=== PATIENT | female | born 1955 | race African-American/Black ===

== ENCOUNTER 2018-03-18 12:54 | Inpatient (IN) | payer OTHER ==
--- NOTE | 2018-03-18 15:34 | PDOC ---
History of Present Illness - General Chief Complaint: Injury Stated Complaint: FALL, RT WRIST PAIN Time Seen by Provider: 03/18/18 14:24 History Source: Patient - History of Present Illness Timing/Duration: other (> 1 yr) Associated Symptoms: reports: weakness Past History - Past Medical History Allergies/Adverse Reactions: Allergies Allergy/AdvReac Type Severity Reaction Status Date / Time No Known Allergies Allergy Verified 03/18/18 21:44 Home Medications: Ambulatory Orders Amlodipine Besylate [Norvasc -] 5 mg PO DAILY #30 tablet 03/21/18 Folic Acid - 1 mg PO DAILY #30 tablet 03/21/18 Gabapentin [Neurontin -] 100 mg PO BID #60 capsule 03/21/18 Nicotine Patch [Nicoderm Patch -] 1 mg TD DAILY #42 patch 03/21/18 Nicotine Patch [Nicoderm Patch -] 1 patch TD DAILY #14 patch 03/21/18 Nicotine Patch [Nicoderm Patch -] 1 patch TD DAILY #14 patch 03/21/18 Thiamine HCl [Vitamin B1 -] 100 mg PO BID #60 tablet 03/21/18 COPD: No - Surgical History Cholecystectomy: Yes - Immunization History Immunization Up to Date: Yes - Suicide/Smoking/Psychosocial Hx Smoking History: Never smoked Have you smoked in the past 12 months: No Number of Cigarettes Smoked Daily: 5 Information on smoking cessation initiated: No Hx Alcohol Use: No Drug/Substance Use Hx: No Substance Use Type: None Review of Systems - Review of Systems Constitutional: Yes: Weakness, Unexplained wgt Loss. No: Chills, Fever Respiratory: No: Cough, Shortness of Breath Cardiac (ROS): No: Chest Pain, Palpitations ABD/GI: Yes: Constipated. No: Blood Streaked Bowels, Diarrhea, Nausea, Rectal Bleeding, Vomiting, Abdominal cramping : No: Burning, Dysuria, Flank Pain, Hematuria Musculoskeletal: No: Back Pain Neurological: Yes: Numbness, Tingling *Physical Exam - Vital Signs Last Vital Signs Temp Pulse Resp BP Pulse Ox 98.2 F 103 H 16 132/96 100 03/18/18 13:09 03/18/18 13:09 03/18/18 13:09 03/18/18 13:09 03/18/18 13:09 - Physical Exam General Appearance: Yes: Appropriately Dressed, Thin. No: Apparent Distress HEENT: positive: Normal Voice. negative: Scleral Icterus (R), Scleral Icterus ( L) Neck: positive: Supple. negative: Lymphadenopathy (R), Lymphadenopathy (L) Respiratory/Chest: positive: Lungs Clear, Normal Breath Sounds. negative: Respiratory Distress Cardiovascular: positive: Regular Rate, S1, S2 Gastrointestinal/Abdominal: positive: Soft. negative: Tender Musculoskeletal: negative: CVA Tenderness Extremity: positive: Normal Inspection Integumentary: positive: Dry, Warm Neurologic: positive: Fully Oriented, Alert, Normal Mood/Affect ED Treatment Course - LABORATORY CBC & Chemistry Diagram: 03/20/18 07:50 03/20/18 06:00 Medical Decision Making - Medical Decision Making 03/18/18 16:23 62-year-old female, s/p herlinda remotely, chronic headaches that usually improves w/ tylenol, ~40 pack yr hx, social drinker (wine w/ dinner), here for evaluation for the 1st time for anorexia that has been present > 1 year. Pt reports that October of last year she ended up losing her job and around that same time developed loss of appetite. States whenever she eats, food has a "funny taste" but denies n/v. States she has lost tremendous weight but not sure how many pounds. Patient does report she was about a size 14 then and might now be a size 3-4. Does have some constipation, which she attributes to not eating but no change in caliber of stools or blood per rectum, melena or abdominal pain. Denies dysuria, hematuria, cough, hemoptysis, chest pain, shortness of breath, breast pain or mass. Does report generalized weakness w/ tingling in hands and feet intermittently x several weeks and that has not been able to ambulate without assistance for the past 3 weeks. No neck/back pain. Patient does admit that she is a poor follow up and has never had a mammogram or a colonoscopy. Has not been evaluated for symptoms prior to this but has her 1st appt w/ Dr Nancy Bare tomorrow. Decided to come in today however, because while standing in her bathroom yesterday, felt a "funny feeling" come over her and next thing she knew she was on the floor. Pt however denies true LOC and no CP or dizziness prior to fall. Pt states she currently has no stressors and is able to mostly enjoy her grandson. Does say she is depressed "sometimes". No HI. Denies anxiety See exam Chronic anorexia w/ progressive weight loss (BMI ~20) in pt w/ significant tob hx Concern is for possible malignancy Thin, cachetic appearing female w/ dry MM and mild tachycardia in ER -IVF -labs -denis-scan -anticipate admission *DC/Admit/Observation/Transfer Diagnosis at time of Disposition: Weight loss, Lung bullae, Neuropathy - Discharge Dispostion Disposition: VNS/HOME HEALTH CARE Condition at time of disposition: Stable - Prescriptions - Referrals - Patient Instructions - Post Discharge Activity
[2018-03-18 16:26] LABS: BASO % 0.3 % (0-2.0); EOS % 0.1 % (0-4.5); HEMATOCRIT 29.9 % (32.4-45.2); HEMOGLOBIN 10.1 GM/dL (10.7-15.3); LYMPH % 24.4 % (8-40); MCH 32.3 pg (25.7-33.7); MCHC 33.7 g/dl (32.0-36.0); MEAN CELL VOLUME 95.8 fl (80-96); MEAN PLT VOLUME 7.6 fl (7.5-11.1); MONO % 6.8 % (3.8-10.2); NEUT % 68.4 % (42.8-82.8); PLATELET COUNT 343 K/MM3 (134-434); RBC 3.12 M/mm3 (3.60-5.2); RDW 14.9 % (11.6-15.6); WHITE BLOOD COUNT 9.6 K/mm3 (4.0-10.0)
[2018-03-18] MEDS ORDERED: SODIUM CHLORIDE 1,000 ML IV STA (16:40)
[2018-03-18 16:44] LABS: INR 0.86 (0.83-1.09); PROTHROMBIN TIME (PATIENT) 10.1 SEC (9.7-13.0)
[2018-03-18 17:28] LABS: ALBUMIN 3.2 g/dl (3.4-5.0); ALK PHOS 101 U/L (45-117); ANION GAP 13 MMOL/L (8-16); BILIRUBIN,TOTAL 0.6 mg/dL (0.2-1); BLOOD UREA NITROGEN 11 mg/dL (7-18); CALCIUM 9.5 mg/dL (8.5-10.1); CHLORIDE 97 mmol/L (98-107); CO2 24 mmol/L (21-32); CREATININE 0.7 mg/dL (0.55-1.3); GLUCOSE,RANDOM 65 mg/dL (74-106); MAGNESIUM 1.9 mg/dL (1.8-2.4); POTASSIUM 4.9 mmol/L (3.5-5.1); SGOT/AST 35 U/L (15-37); SGPT/ALT 29 U/L (13-61); SODIUM 134 mmol/L (136-145); TOT PROT 7.1 g/dl (6.4-8.2)
[2018-03-18] MEDS ORDERED: DEXTROSE 50%-WATER - 25 GM/50 ML VIAL IVPUSH ONE (17:28)
[2018-03-18] MEDS ORDERED: DEXTROSE 50%-WATER 25 GM/50 ML DISP.SYRIN ONE (17:30)
--- NOTE | 2018-03-18 19:49 | PDOC ---
*Physical Exam - Vital Signs Last Vital Signs Temp Pulse Resp BP Pulse Ox 98.2 F 103 H 16 132/96 100 03/18/18 13:09 03/18/18 13:09 03/18/18 13:09 03/18/18 13:09 03/18/18 13:09 - Physical Exam General Appearance: Yes: Appropriately Dressed, Thin Respiratory/Chest: positive: Lungs Clear, Normal Breath Sounds Cardiovascular: positive: Regular Rhythm, Regular Rate Gastrointestinal/Abdominal: positive: Normal Bowel Sounds, Soft. negative: Tender Extremity: positive: Normal Capillary Refill, Normal Inspection, Normal Range of Motion Integumentary: positive: Normal Color, Dry, Warm Neurologic: positive: Fully Oriented, Alert, Normal Mood/Affect ED Treatment Course - LABORATORY CBC & Chemistry Diagram: 03/20/18 07:50 03/20/18 06:00 - ADDITIONAL ORDERS Additional order review: Laboratory Results 03/18/18 03/18/18 16:00 16:00 PT with INR 10.10 INR 0.86 Sodium 134 L Potassium 4.9 Chloride 97 L Carbon Dioxide 24 Anion Gap 13 BUN 11 Creatinine 0.7 Creat Clearance w eGFR > 60 Random Glucose 65 L Calcium 9.5 Magnesium 1.9 Total Bilirubin 0.6 AST 35 ALT 29 Alkaline Phosphatase 101 Total Protein 7.1 Albumin 3.2 L Vitamin B12 573 03/18/18 16:00 RBC 3.12 L MCV 95.8 MCHC 33.7 RDW 14.9 MPV 7.6 Neutrophils % 68.4 Lymphocytes % 24.4 Monocytes % 6.8 Eosinophils % 0.1 Basophils % 0.3 - Medications Given in the ED: ED Medications Discontinued Medications Generic Name Dose Route Start Last Admin Trade Name Jesika PRN Reason Stop Dose Admin Dextrose 25 gm 03/18/18 17:28 03/18/18 17:39 D50w (Vial) - IVPUSH 03/18/18 17:29 25 gm NOW ONE Administration Sodium Chloride 1,000 mls @ 1,000 mls/hr 03/18/18 16:40 03/18/18 17:28 Normal Saline - IV 03/18/18 17:39 1,000 mls/hr ASDIR STA Administration Medical Decision Making - Medical Decision Making 03/18/18 19:49 patient is reporting weakness. weight > 30 lbs in 1 year. patient is a smoker. denies NVD, abdominal pain CT reviewed. will obs for prompt oncology consult considering strong suggestion for malignancy. 03/18/18 19:53 patient signed out to Dr. bran/ [place] *DC/Admit/Observation/Transfer Diagnosis at time of Disposition: Weight loss, Lung bullae, Neuropathy - Discharge Dispostion Condition at time of disposition: Stable Decision to Admit order: Yes - Prescriptions - Referrals - Patient Instructions - Post Discharge Activity
[2018-03-18 21:24] LABS: PHOSPHOROUS 3.5 mg/dL (2.5-4.9)
--- NOTE | 2018-03-18 22:07 | HP ---
CHIEF COMPLAINT: weakness, parasthesias PCP: Nancy Hull HISTORY OF PRESENT ILLNESS: Patient is a 62 year old female with history of hypertension, presents with complaint of parasthesias, and weakness ongoing for past three weeks. She denies inciting event or trauma. States that she feels parasthesias within her b /l hands and lower extremities and feet distal to the knees b/l. Endorses that for past year her appetite has decreased, and most food tastes like Tin metal. She is able to tolerate fruits and vegetables, however for past 6 months has been drinking 3 ensure a day as main source of nourishment. She denies abdominal pain, nausea, vomiting, diarrhea, or any prior workup. She endorses two syncopal episodes last night. First occurred while standing in bathroom, feeling lightheaded, and weakness in lower extremities. Denies prodromal chest pain, palpitations. No urinary bladder or bowel incontinence. No trauma to head or any part of body. Denies loss of consciousness. Second episode occurred approx. 1 hour later after walking upstairs after smoking a cigarette. Patient endorses last seeing a physician at [facility] for the symptoms of weakness and parasthesias, however prior to that visit denies any recent physician visit. Denies prior colonoscopy, or mammography. ER course was notable for: (1) CT chest: 2.3cm bullae at right lower lobe with internal septations (2) CT abdomen pelvis: possible collitis, with mild concentric wall thickening. Hepatic steatosis with 1.4cm left hepatic lobe focus (3) Orthostatic hypotension: supine 172/97 (88), standing 118/85 (119) Recent Travel: denies PAST MEDICAL HISTORY: hypertension (not on treatment) PAST SURGICAL HISTORY: cholecystectomy at 20 y/o Social History: Smoking: smokes 1/2 pack per day since 16 years old Alcohol: admits two glasses of wine with dinner Drugs: denies Family History: Father: in his 50s due to lung cancer Mother: at 65 y/o due to brain cancer Allergies: Denies food and medication allergies No Known Allergies Allergy (Verified 03/18/18 21:44) HOME MEDICATIONS: Home Medications Medication Instructions Recorded NK [No Known Home Medication] 03/18/18 REVIEW OF SYSTEMS CONSTITUTIONAL: Admits: generalized weakness, loss of appetite, weight loss. Absent: fever, chills, diaphoresis, malaise, HEENT: Absent: rhinorrhea, nasal congestion, throat pain, throat swelling, difficulty swallowing, mouth swelling, ear pain, eye pain, visual changes CARDIOVASCULAR: Admits: lightheadedness. Absent: chest pain, syncope, palpitations, irregular heart rate, peripheral edema RESPIRATORY: Absent: cough, shortness of breath, dyspnea with exertion, orthopnea, wheezing, stridor, hemoptysis GASTROINTESTINAL: Admits: constipation. Absent: abdominal pain, abdominal distension, nausea, vomiting, diarrhea, melena, hematochezia GENITOURINARY: Absent: dysuria, frequency, urgency, hesitancy, hematuria, flank pain, genital pain MUSCULOSKELETAL: Absent: myalgia, arthralgia, joint swelling, back pain, neck pain SKIN: Absent: rash, itching, pallor HEMATOLOGIC/IMMUNOLOGIC: Absent: easy bleeding, easy bruising, lymphadenopathy, frequent infections ENDOCRINE: Admits: weight loss. Absent: unexplained weight gain, heat intolerance, cold intolerance NEUROLOGIC: Admits: syncope, pasasthesias, focal weakness b/l lower extremities. Absent: headache, dizziness, unsteady gait, seizure, mental status changes, bladder or bowel incontinence PSYCHIATRIC: Admits: occasional depression. Absent: anxiety, suicidal or homicidal ideation, hallucinations. PHYSICAL EXAMINATION Vital Signs - 24 hr 03/18/18 03/18/18 13:09 19:15 Temperature 98.2 F Pulse Rate 103 H Pulse Rate [ 97 H Apical] Respiratory 16 18 Rate Blood Pressure 132/96 Blood Pressure 130/87 [Left Arm] O2 Sat by Pulse 100 98 Oximetry (%) GENERAL: Pleasant -[place] female, appears stated age. Awake, alert, and fully oriented, in no acute distress. HEAD: Normal with no signs of trauma. No facial drooping noted. EYES: Pupils equal, round and reactive to light, extraocular movements intact without nystagmus, sclera anicteric, conjunctiva clear. No lid lag. EARS, NOSE, THROAT: Ears normal, nares patent, oropharynx clear without erythema , exudates. Moist mucous membranes. NECK: Normal range of motion, supple without lymphadenopathy, JVD, or masses. LUNGS: Breath sounds equal, clear to auscultation bilaterally. No wheezes, and no crackles. No accessory muscle use. HEART: Regular rate and rhythm, normal S1 and S2 without murmur, rub or gallop. ABDOMEN: Soft, nontender, not distended, normoactive bowel sounds, no guarding, no rebound, no masses. No hepatomegaly or splenomegaly. MUSCULOSKELETAL: Normal range of motion at all joints. No bony deformities or tenderness. No CVA tenderness. UPPER EXTREMITIES: 2+ radial pulses b/l, warm, well-perfused. Strength 5/5 b/l upper extremity flexion, extension, abduction, adduction. LOWER EXTREMITIES: 2+ dorsalis pedis pulses b/l. warm, well-perfused. No calf tenderness. No peripheral edema b/l. Strength 3/5 seated hip flexion b/l, 4/5 dorsiflexion, plantarflexion b/l. 5/5 knee flexion, extension b/l. NEUROLOGICAL: Cranial nerves II-XII intact. Biceps reflex 2+ b/l. Patellar reflex 2+ b/l. Normal speech. Gait is ataxic, requiring assistance. PSYCHIATRIC: Cooperative. Good eye contact. Appropriate mood and affect upon my encounter today. SKIN: Warm, dry, normal turgor, no rashes or lesions noted. Horizontal scar at right upper quadrant abdomen from prior cholecystectomy. Laboratory Results - last 24 hr 03/18/18 03/18/18 03/18/18 16:00 16:00 16:00 WBC 9.6 RBC 3.12 L Hgb 10.1 L Hct 29.9 L MCV 95.8 MCH 32.3 MCHC 33.7 RDW 14.9 Plt Count 343 MPV 7.6 Absolute Neuts (auto) 6.6 Neutrophils % 68.4 Lymphocytes % 24.4 Monocytes % 6.8 Eosinophils % 0.1 Basophils % 0.3 Nucleated RBC % 0 PT with INR 10.10 INR 0.86 Sodium 134 L Potassium 4.9 Chloride 97 L Carbon Dioxide 24 Anion Gap 13 BUN 11 Creatinine 0.7 Creat Clearance w eGFR > 60 POC Glucometer Random Glucose 65 L Calcium 9.5 Phosphorus 3.5 Magnesium 1.9 Total Bilirubin 0.6 AST 35 ALT 29 Alkaline Phosphatase 101 Total Protein 7.1 Albumin 3.2 L Vitamin B12 573 03/18/18 20:59 WBC RBC Hgb Hct MCV MCH MCHC RDW Plt Count MPV Absolute Neuts (auto) Neutrophils % Lymphocytes % Monocytes % Eosinophils % Basophils % Nucleated RBC % PT with INR INR Sodium Potassium Chloride Carbon Dioxide Anion Gap BUN Creatinine Creat Clearance w eGFR POC Glucometer [id number] Random Glucose Calcium Phosphorus Magnesium Total Bilirubin AST ALT Alkaline Phosphatase Total Protein Albumin Vitamin B12 ASSESSMENT/PLAN: Patient is a 62 year old female with history of hypertension, presents with complaint of parasthesias, and weakness ongoing for past three weeks. Parasthesias, lower extremity weakness -Unclear etiology. Considering possible paraneoplastic syndrome secondary to lung mass noted on CT -F/U TSH, A1c, ESR, CRP, TIERRA, RF -Falls appear to be secondary to her lower extremity weakness -Gabapentin 100mg PO BID -F/U neurology consult (Dr. Angel) -Physical therapy evaluation Lung Mass -CT chest noted 2.3cm right lower lobe bulla with thickened internal septations. Concern for malignancy given patient's extensive smoking history, and family history of lung cancer. -F/U Pulmonology consult (Dr. Thayer) -Patient will require f/U CT chest within two months per radiologist recommendations Possible colitis -Incidentally noted on CT with mild concentric wall thickening along ascending and transverse colon. No pericolonic edema, or fluid accumulation. No pneumoperitoneum, abscess, free air. -Patient notes her bowel movements have remained constant (1-2 per week) without change in stool caliber, melena, hematochezia. Benign abdominal exam. -Will monitor without antibiotics at this time. -Consider GI follow up as outpatient. Patient will at least need colonoscopy. Common iliac arotic stenosis -CT abdomen pelvis noted stenosis of left common iliac artery with calcification. -F/U Duplex arterial studies of lower extremities. Hepatic steatosis, enhancing focus -Incidental finding 1.4cm within medial segment left hepatic lobe, in addition to diffuse hepatic steatosis. -Recommended contrast MRI as outpatient per radiology. -Consider outpatient GI follow up Normocytic anemia -Uncertain if patient at baseline. -F/U reticulocyte count -F/U serum iron, transferrin, TIBC Leiomyoma -Incidentally noted on CT, 4.5cm -Consider outpatient follow up with [facility] -No IV fluids. Encourage judicious oral hydration -Within normal limits. F/U CMP -Regular diet Prophylaxis -Lovenox 40mg subq daily Disposition -Admit to medical surgical floor. Fall risk precautions Visit type - Emergency Visit Emergency Visit: Yes ED Registration Date: 03/18/18 Care time: The patient presented to the Emergency Department on the above date and was hospitalized for further evaluation of their emergent condition. - New Patient This patient is new to me today: Yes Date on this admission: 03/19/18 - Critical Care Critical Care patient: No
--- NOTE | 2018-03-18 22:52 | PN ---
Teaching Attending Note Name of Resident: Narda Santo ATTENDING PHYSICIAN STATEMENT I saw and evaluated the patient. I reviewed the resident's note and discussed the case with the resident. I agree with the resident's findings and plan as documented. SUBJECTIVE: patient is a 62-year-old -[place] female with past medical history of cholecystectomy at age 20 and has not seen a doctor since. She presents to the emergency room for 3 weeks of worsening peripheral neuropathy impacting all 4 limbs stocking glove distribution on both her hands and feet. It is associated with weakness that is not made better or worse with activity that has a predilection for the distal extremities specifically impacting the lower limb. She was seen shortly before coming to the ER by [facility] but tells me that they didn't give her a diagnosis. The the impacts her ability to ambulate and she did have 2 mechanical falls within the past with less, there were no syncopal symptoms with this. She did not lose consciousness. She has been having formed not hard bowel movement since her cholecystectomy has had no change in her bowel movements in years. She is having no abdominal pain. Denies any rashes. She does have some joint pain in her knees. Denies any fecal or urinary incontinence, no saddle anesthesia. 10 sys ROS done and negative aside from HPI Social hx significant for daily half pack-a-day smor, denies alcohol abuse but does drink wine daily with dinner, denies any drug abuse FH significant for parents with breast cancer, brain cancer. PMH and PSH reviewed and are as per chart OBJECTIVE: VS, labs, imaging reviewed NAD, AAO, resting comfortably in bed. RRR s1/2 no mgr Lungs CTAB with sym expansion NT ND +BS no leticia organomegaly CN2-12 wnl; no FND; 4/5 motor strength b/l LE with 5/5 UE with sensorium in tact to fine and sharp touch. Normal muscle tone without any cogwheeling. Gait examined by resident but she was feeling weak after so not rechecked to mitigate a fall risk. Reflexes normal. Speech and cognition are normal. NC AT EOMI PERRLA Normal mood, appropriate behavior, euthymic affect CT shows a 2.3 cm RLL superior segment bulla with some thick internal septations ; 2 month followup recommended. Questionable Acute Collitis with mild concentric wall thickening without pericolonic edema 1.4cm mildly enhanced segment of the L-hepatic lobe 4.5cm leiomyoma Moderate stenosis of the L common iliac A Labs reveal a normal white count and a normocytic anemia with Hb 10. Glucose slightly low at 65. ASSESSMENT AND PLAN: Pt is 62-year old presenting with 3 weeks of progressive peripheral neuropathy and weakness; she does not follow with a physician She had some concerning findings in her lungs on CT with the bulla with thick septations. She will be admitted to medicine with pulmonary and neurological consultation. 1) Peripheral Neuropathy with Weakness -Broad ddx; we will consider the common offenders and check B12, TSH, and A1c. We will also consider more esoteric causes of this including rheumatologic and potential neuro/endocrine. No recent tick exposure, rashes, etc. No travel overseas. No sick contacts. No ascending component to her weakness and still 4 /5 and still ambulatory. No respiratory compromise. Not improving/worsening with activity. As upper and lower not suspecting a focal spinal cord lesion causing these sx. She does drink almost daily but only 1-2 glasses of wine with food and denies alcohol abuse; recommend stopping all alcohol to ensure there is no EtOH component to her neuropathy. -Checking ESR/CRP, TIERRA screen, RF. As she has issues with not seeing an MD in a long time, etc. will have neuro see her here to get her situated in clinic for continued followup; I have instructed the residents to phone them in the morning. As always, appreciate specialist input in the ongoing care of Mrs. Mooney. We will defer further testing such as neuroimaging to specialty service. -Trialing gabapentin at low dose and monitor for improvement; monitor for side effects -Consult PT 2) Bowel Wall Thickening (found incidentally on CT) -Denies abdominal pain, diarrhea, changes in BM, current nausea or vomitting. Did vomit water a few days ago. No WBC count, no fever. Given the lack of symptoms, completely benign examination, and lab findings this appears to be isolated mild concentric colonic wall thickening that could represent colitis but lacks the rest of the clinical picture. Therefore we will monitor for diarrhea and trend WBC count and fevers. We will check lactoferrin at least to rule out any inflammatory component of the diarrhea. Never had a colonoscopy or EGD. Never saw GI. No abx at this time. 3) RLL superior segment bulla -2.3cm RLL superior segment bulla with some thick internal septations found on CT scan; recommended 2 month followup of imaging to document stability and to exclude developing pathology. -Will ensure she is associated with PCP and pulmonary medicine for followup; once again given her circumstances would behove her to be seen here so she isn' t lost to followup. Dr. Thayer will be phoned in the AM. 3) Hepatic lobe focal lesion -Could be variant of normal anatomy; 1.4cm finding in the medial segment of the L-hepatic lobe is focal and nonspecific. Radiology recommended contrast- enhanced MRI done nonemergently. At the very least she should have this arranged for her as an outpatient prior to DC with potential followup with GI. 4) L-common iliac A stenosis -Incidental finding; distribution doesn't explain any of her sx. -Obtaining duplex studies of the lower extremities. Will followup. She is neurovascularly intact in her lower extremities bilaterally. 5) Hepatic Steatosis -Found incidentally on CT scan; deputy chief counsel regarding lifestyle modification and close followup with PCP recommended 6) Leiomyoma -Incidental finding; encourage outpatient referral to OBGYN. 7) Normocytic Anemia -Check iron studies, etc. XF threshold >7 8) Tobacco Abuse -Counseled regarding smoking cessasion; precontemplative. Offer NRT while inpatient. #) Overall Health Maintenance -As she has never been to an MD as an adult, we will check an A1c, check lipids ; already checking TSH for above reasons. She will need mamogram and colonoscopy as an outpatient. Already had the CT scan of her abdomen/pelvis which didn't show a AAA. CT chest obviously has been done so this isn't needed for screening. She will need pneumococcal vaccine, flu shot, and updated Tdap and at least offered shingles vaccine. FENA -No IVF needed -Monitor and replete PRN -Regular Diet -As tolerated
[2018-03-18] MEDS ORDERED: amLODIPine BESYLATE 5 MG TABLET (FP) PO ONE (23:32)
[2018-03-18] MEDS ORDERED: GABAPENTIN 100 MG CAPSULE (FP) ONE (23:36)
[2018-03-18] MEDS: GABAPENTIN 100 MG CAPSULE (FP) PO SCH (23:42)
[2018-03-19 02:00] VITALS: BMI 19.9
[2018-03-19] MEDS ORDERED: PNEUMOC 13-VAL CONJ-DIP CRM/PF 0.5 ML DISP.SYRIN IM ONE (02:00)
[2018-03-19 07:25] LABS: HEMATOCRIT 25.5 % (32.4-45.2); HEMOGLOBIN 8.6 GM/dL (10.7-15.3); MCH 32.4 pg (25.7-33.7); MCHC 33.6 g/dl (32.0-36.0); MEAN CELL VOLUME 96.4 fl (80-96); PLATELET COUNT 273 K/MM3 (134-434); RBC 2.65 M/mm3 (3.60-5.2); RDW 14.7 % (11.6-15.6); WHITE BLOOD COUNT 9.9 K/mm3 (4.0-10.0)
[2018-03-19 08:40] LABS: ALBUMIN 2.9 g/dl (3.4-5.0); ALK PHOS 88 U/L (45-117); ANION GAP 14 MMOL/L (8-16); BILIRUBIN,TOTAL 0.5 mg/dL (0.2-1); BLOOD UREA NITROGEN 9 mg/dL (7-18); CHLORIDE 101 mmol/L (98-107); CO2 23 mmol/L (21-32); CREATININE 0.7 mg/dL (0.55-1.3); GLUCOSE,RANDOM 76 mg/dL (74-106); MAGNESIUM 1.6 mg/dL (1.8-2.4); PHOSPHOROUS 2.9 mg/dL (2.5-4.9); POTASSIUM 3.3 mmol/L (3.5-5.1); SGOT/AST 23 U/L (15-37); SGPT/ALT 21 U/L (13-61); SODIUM 138 mmol/L (136-145)
[2018-03-19] MEDS ORDERED: POTASSIUM CHLORIDE TABS 20 MEQ TABLET.ER (FP) PO ONE (09:07)
[2018-03-19] MEDS ORDERED: FLU VACCINE QUAD 60 MCG/0.5 ML (MDV 18-19) IM ONE (10:00)
[2018-03-19] MEDS ORDERED: ENOXAPARIN NA (PORCINE) 40 MG/0.4 ML DISP.SYRIN SQ SCH (10:00)
[2018-03-19] MEDS ORDERED: PNEUMOCOCCAL 23 VACCINE 0.5 ML VIAL IM ONE (10:00)
--- NOTE | 2018-03-19 10:06 | CON.NEURO ---
Consult Consult Specialty:: Stanley Referred by:: PCP Reason for Consultation:: weakness - History of Present Illness History of Present Illness: 62 years old woman with PMH HTN Smoker Anemia according to the patient she has been having these leg symptoms for quite a while about 7-10 days patient did not seek medical attention patient feels her legs are giving out. Patient denies any recent fever or diarrhea. No abdominal pain. Patient with mild back pain. Patient never had these symptoms before. Patient denies any recent travel. Patient admits to weight loss patient is a smoker. - History Source History Provided By: Patient Limitations to Obtaining History: No Limitations - Alcohol/Substance Use Hx Alcohol Use: Yes (2 glasses of wine daily) - Smoking History Smoking history: Current every day smoker Have you smoked in the past 12 months: No Aproximately how many cigarettes per day: 5 Home Medications - Allergies Allergies/Adverse Reactions: Allergies Allergy/AdvReac Type Severity Reaction Status Date / Time No Known Allergies Allergy Verified 03/18/18 21:44 - Home Medications Home Medications: Ambulatory Orders Acetaminophen [Tylenol] 650 mg PO PRN PRN 03/19/18 Physical Exam-Neuro Vital Signs: Vital Signs Temperature 98.5 F 03/19/18 05:41 Pulse Rate 90 03/19/18 05:41 Respiratory Rate 18 03/19/18 05:41 Blood Pressure 132/91 03/19/18 05:41 O2 Sat by Pulse Oximetry (%) 100 03/19/18 01:47 Labs: CBC, BMP 03/19/18 06:00 03/19/18 06:00 INR, PTT INR 0.86 (0.83-1.09) 03/18/18 16:00 - Neuro Exam Level Of Consciousness: Yes: Oriented to Person, Oriented to Place, Oriented to Time Eyes: Yes: PERRLA Dominant Hand: Right Cranial Nerves II-XII Intact: Yes Gag: Present DTR's: 1+ Left Bicep, 1+ Right Bicep, 1+ Left Brachioradialis, 1+ Right Brachioradialis Response to pain prick: Abnormal Response to temperature: Abnormal Response to vibration: Abnormal Motor Strength: 3/5: Left Arm, Right Arm, Left Leg, Right Leg Gait: Deferred Problem List - Problems (1) Neuropathy Assessment/Plan: tthe nature of the patient's symptoms with ascending paresthesia make me worried about demyelinating disease Patient has reflexes which speaks against Guillain-Hartman syndromes. Questionable nature neuropathy versus spinal stenosis to be ruled out 1. Neuro checks every 2 hours. 2. Urgent nerve conduction testing with myography of the lower extremities. 3. Consider spinal tap to check for protein. 4. Fall precautions. 5. CAT scan of the lumbosacral spine with no contrast. 6. Blood work including tumor markers for questionable paraneoplastic syndrome. 7. Follow-up the results of the CAT scan of the chest with the all round butcher. Thank you very much for referring this patient for neurological consultation. Code(s): G62.9 - POLYNEUROPATHY, UNSPECIFIED
[2018-03-19] MEDS: amLODIPine BESYLATE 5 MG TABLET (FP) PO SCH (10:15)
[2018-03-19] MEDS: GABAPENTIN 100 MG CAPSULE (FP) PO SCH ×2 (10:16→21:05)
--- NOTE | 2018-03-19 11:35 | EKG ---
Test Reason : Blood Pressure : / mmHG Vent. Rate : 087 BPM Atrial Rate : 087 BPM P-R Int : 106 ms QRS Dur : 096 ms QT Int : 396 ms P-R-T Axes : 064 068 051 degrees QTc Int : 476 ms SINUS RHYTHM WITH MARKED SINUS ARRHYTHMIA WITH SHORT WV POSSIBLE LEFT ATRIAL ENLARGEMENT INCOMPLETE RIGHT BUNDLE BRANCH BLOCK BORDERLINE ECG NO PREVIOUS ECGS AVAILABLE Confirmed by SAMRA WADE, VIOLA ([id number]) on 03/19/2018 11:35:10 AM Referred By: Confirmed By:VIOLA CABRALES MD
--- NOTE | 2018-03-19 15:21 | PN ---
Progress Note (short form) - Note Progress Note: PULMONARY CONSULTATION DICTATED 03/19/18 IMP RLL BULLA WITH SEPTATIONS NEUROPATHY ? PARANEOPLASTIC ANEMIA WT LOSS ? UNDERLYING MALIGNANCY TOBACCO ABUSE PLAN F/U CHEST CT 3 MONTHS CONSIDER GI W/U NEURO EVALUATION SMOKING CESSATION COUNSELED CONSIDER PET SCAN OUTPATIENT DR GARZA Problem List - Problems (1) Weight loss Code(s): R63.4 - ABNORMAL WEIGHT LOSS (2) Tobacco abuse Code(s): Z72.0 - TOBACCO USE (3) Tobacco abuse counseling Code(s): Z71.6 - TOBACCO ABUSE COUNSELING (4) Neuropathy Code(s): G62.9 - POLYNEUROPATHY, UNSPECIFIED (5) Lung bullae Code(s): J43.9 - EMPHYSEMA, UNSPECIFIED (6) Anemia Code(s): D64.9 - ANEMIA, UNSPECIFIED
[2018-03-19] MEDS ORDERED: MAGNESIUM OXIDE 400 MG TABLET (FP) PO ONE (15:46)
--- NOTE | 2018-03-19 16:24 | PN ---
Teaching Attending Note Name of Resident: Samuel Guo ATTENDING PHYSICIAN STATEMENT I saw and evaluated the patient. I reviewed the resident's note and discussed the case with the resident. I agree with the resident's findings and plan as documented. SUBJECTIVE: No fever or chils. no night sweats. No CP, abd pain , or dysuria . No melena , rectal bleed, cough , hemoptysis OBJECTIVE: NAD Cv : RRR Lungs: CTAB abd: soft , Nt, Nd , NL BS Ext : no edema neuro : EOMI, round equal pupils ,reactive tolight, no facial droop. nl facial sensation . strength 5/5 in upper and lower extremities proximally and distally. sesnation to light touch NL. reflexes 2+ biceps and 1+ knee jerk B/ l. decreased proprioception ASSESSMENT AND PLAN: 62 y/o Lady with h/o CCY and no medical care for many years who presented with parasthesia and weight loss. 1- Parasthesia. peripheral neuropathy. no clear etiology. nutritional def vs paraneoplastic syndromes vs MM given anemia B12 , TSH Nl. - follow tumor markers - LP by Neuro - CT of spine - order SPEP, UPEP - will consent for HIV - PT eval. - Pet scan as out pt - follow zinc and mercury 2- weight loss. cherry to r/o malignancy - PET scan as out pt 3- L lung bullus : f/u as out pt 4- uterine fibroid : out pt follo wup 5- Normocytic anemia : follow iron studies check SPEP and UPEP 6- Liver lesions: follow up with MRI as out pt 7- accidental finding of thick colon, no signs of colitis . hold off Abx 8- hypoglycemia resolved hold DVT PX for LP
--- NOTE | 2018-03-19 20:03 | PN ---
Physical Exam: SUBJECTIVE: Patient seen and examined this morning. Says she has never passed out in the past. Says she has had numbness and lower extremity swelling for the past month that came on all of sudden. Denies having any appetite over the past few months. Estimates losing 30-40lbs over the past few months. OBJECTIVE: Vital Signs Period Temp Pulse Resp BP Sys/Finley Pulse Ox Last 24 Hr 97.7 F-98.6 F 83-103 18-20 129-166/74-91 98-100 GENERAL: A&Ox3, NAD HEAD: NCAT EYES: PERRL, EOMI ENT: Moist mucous membranes NECK: No JVD LUNGS: CTAB, no wheezes HEART: Regular rate and rhythm, S1, S2 without murmur ABDOMEN: Soft, nontender, nondistended, normoactive bowel sounds, no guarding EXTREMITIES: 2+ pulses, no edema. 4/5 Muscle strength to handgrip, elbow flexion /extension, dorsiflexion, platarflexion. 3/5 Muscle strength to Hip flexion. NEUROLOGICAL: Cranial nerves II through XII grossly intact. Normal speech, gait not observed. PSYCH: Normal mood, normal affect. SKIN: Warm, dry Laboratory Results - last 24 hr 03/18/18 03/18/18 03/18/18 16:00 20:59 23:35 WBC RBC Hgb Hct MCV MCH MCHC RDW Plt Count MPV ESR Retic Count Sodium 134 L Potassium 4.9 Chloride 97 L Carbon Dioxide 24 Anion Gap 13 BUN 11 Creatinine 0.7 Creat Clearance w eGFR > 60 POC Glucometer [phone] Random Glucose 65 L Calcium 9.5 Phosphorus 3.5 Magnesium 1.9 Total Bilirubin 0.6 AST 35 ALT 29 Alkaline Phosphatase 101 C-Reactive Protein < 0.3 Total Protein 7.1 Albumin 3.2 L Vitamin B12 573 TSH 1.74 Urine Protein Stool Occult Blood 03/19/18 03/19/18 03/19/18 00:05 06:00 06:00 WBC 9.9 RBC 2.65 L Hgb 8.6 L Hct 25.5 L MCV 96.4 H MCH 32.4 MCHC 33.6 RDW 14.7 Plt Count 273 D MPV 8.0 ESR 28 Retic Count Sodium 138 Potassium 3.3 L Chloride 101 Carbon Dioxide 23 Anion Gap 14 BUN 9 Creatinine 0.7 Creat Clearance w eGFR > 60 POC Glucometer Random Glucose 76 Calcium 9.0 Phosphorus 2.9 Magnesium 1.6 L Total Bilirubin 0.5 AST 23 ALT 21 Alkaline Phosphatase 88 C-Reactive Protein Total Protein 6.0 L Albumin 2.9 L Vitamin B12 TSH Urine Protein Stool Occult Blood 03/19/18 03/19/18 03/19/18 06:00 13:28 15:40 WBC RBC Hgb Hct MCV MCH MCHC RDW Plt Count MPV ESR Retic Count 1.05 Sodium Potassium Chloride Carbon Dioxide Anion Gap BUN Creatinine Creat Clearance w eGFR POC Glucometer Random Glucose Calcium Phosphorus Magnesium Total Bilirubin AST ALT Alkaline Phosphatase C-Reactive Protein Total Protein Albumin Vitamin B12 TSH Urine Protein 44 H Stool Occult Blood Negative Active Medications Amlodipine Besylate (Norvasc -) 5 mg PO DAILY [facility] Last Admin: 03/19/18 10:15 Dose: 5 mg Gabapentin (Neurontin -) 100 mg PO BID [facility] Last Admin: 03/19/18 10:16 Dose: 100 mg IMAGING: -EKG: SINUS RHYTHM WITH MARKED SINUS ARRHYTHMIA WITH SHORT VA, POSSIBLE LEFT ATRIAL ENLARGEMENT, INCOMPLETE RIGHT BUNDLE BRANCH BLOCK, VR 87, QTc 476 -Right Hand/Wrist XRay: AP, lateral and oblique views of the right hand and wrist reveal no sign of a gross fracture, subluxation or bone destruction. Blastic or lytic changes are not seen. There is no sign of swelling, foreign body or soft tissue air. If symptoms persist, further imaging and orthopedic consultation may be of help. -CT A/P: Possible acute colitis as noted above. A 1.4 cm mildly enhancing left hepatic lobe focus is seen probably on the basis of normal variation and less likely representing a focal nonspecific lesion. Correlate with nonemergent contrast-enhanced multiphase MRI. Probable diffuse hepatic steatosis. 4.5 cm partially calcified uterine leiomyoma. A focal atherosclerotic stenosis is seen within the left common iliac artery which is at least moderate in degree. -CT Chest: No CT evidence of acute pathology. A 2.3 cm right lower lobe superior segment bulla is noted containing several slightly thickened internal septations. Correlate with 2 month follow-up CT to document stability and exclude developing pathology. Several subcentimeter bilateral apical subpleural bullae are seen. -DUPLEX LE: Monophasic waveform in the right and left lower extremity deep arterial system with atheromatous plaques, as described above compatible with moderate atherosclerotic disease and without evidence of occlusion. Correlate clinically to determine further evaluation. ASSESSMENT/PLAN: 62 y/o F with PMHx of HTN presents with parasthesias and weakness for multiple weeks #Parasthesias, lower extremity weakness -Unclear etiology; Consider paraneoplastic syndrome secondary to lung mass, Nutritional deficiency, Multiple myeloma -B12, TSH noted above -A1c, ESR, CRP, TIERRA, RF pending -Gabapentin 100mg PO BID -Neurology (Dr. Angel) consulted, Appreciate rec's -Physical therapy evaluation -Neurochecks Q2H -Urgent nerve conduction testing with myography of the lower extremities -CT scan of the lumbosacral spine w/o contrast -Tumor markers, SPEP, UPEP, Zinc, Mercury -LP by Neuro -HIV testing pending consent #Lung Mass -Noted on CT chest, Concerns for malignancy given Smoking hx, weight loss -Pulmonology (Dr. Thayer) consulted, Appreciate Rec's #Possible colitis -Noted on CT; Patient mentions her 1-2 BMs per week, Benign abdominal exam -No indication for antibiotics at this time #Normocytic anemia -Reticulocyte count, serum iron, transferrin, TIBC pending -SPEP, UPEP #FEN -PO Fluids -Lytes WNL -Regular diet #PPx -DVT: Lovenox Dispo: med-surg Visit type - Emergency Visit Emergency Visit: Yes ED Registration Date: 03/18/18 Care time: The patient presented to the Emergency Department on the above date and was hospitalized for further evaluation of their emergent condition. - New Patient This patient is new to me today: No - Critical Care Critical Care patient: No - Discharge Referral Referred to [facility] No
[2018-03-19] MEDS: NICOTINE 21 MG/24 HOURS TOPICAL PATCH TD SCH (21:05)
[2018-03-20 08:07] LABS: SERUM IRON SATURATION 44 % (15-55); TOTAL IRON BINDING CAPACITY 150 ug/dL (250-450); UIBC 84 ug/dL (118-369)
[2018-03-20 08:44] LABS: BASO % 0.6 % (0-2.0); EOS % 0.5 % (0-4.5); HEMOGLOBIN 9.5 GM/dL (10.7-15.3); LYMPH % 15.8 % (8-40); MCH 31.8 pg (25.7-33.7); MCHC 32.8 g/dl (32.0-36.0); MEAN CELL VOLUME 96.9 fl (80-96); MEAN PLT VOLUME 8.3 fl (7.5-11.1); MONO % 5.8 % (3.8-10.2); NEUT % 77.3 % (42.8-82.8); PLATELET COUNT 269 K/MM3 (134-434); RBC 2.99 M/mm3 (3.60-5.2); RDW 15.4 % (11.6-15.6); WHITE BLOOD COUNT 6.5 K/mm3 (4.0-10.0)
[2018-03-20 09:14] LABS: ALBUMIN 3.2 g/dl (3.4-5.0); ALK PHOS 98 U/L (45-117); ANION GAP 9 MMOL/L (8-16); BILIRUBIN,TOTAL 0.5 mg/dL (0.2-1); BLOOD UREA NITROGEN 6 mg/dL (7-18); CALCIUM 9.1 mg/dL (8.5-10.1); CHLORIDE 103 mmol/L (98-107); CO2 27 mmol/L (21-32); CREATININE 0.7 mg/dL (0.55-1.3); GLUCOSE,RANDOM 83 mg/dL (74-106); MAGNESIUM 1.7 mg/dL (1.8-2.4); PHOSPHOROUS 2.5 mg/dL (2.5-4.9); POTASSIUM 3.7 mmol/L (3.5-5.1); SGOT/AST 22 U/L (15-37); SGPT/ALT 23 U/L (13-61); SODIUM 139 mmol/L (136-145); TOT PROT 6.5 g/dl (6.4-8.2)
[2018-03-20] MEDS: GABAPENTIN 100 MG CAPSULE (FP) PO SCH ×2 (11:01→21:09)
[2018-03-20] MEDS: amLODIPine BESYLATE 5 MG TABLET (FP) PO SCH (11:01)
[2018-03-20] MEDS: NICOTINE 21 MG/24 HOURS TOPICAL PATCH TD SCH (11:01)
--- NOTE | 2018-03-20 12:19 | CONS ---
DATE OF CONSULTATION: 03/19/2018 PULMONARY CONSULTATION REFERRING PHYSICIAN: Nishi Chacon MD HISTORY OF PRESENT ILLNESS: The patient is a 62-year-old black female with a very significant past medical history of a cholecystectomy at age 20, with a long- standing history of tobacco use, approximately one-half pack per day for many years and she is still smoking 5 or 6 cigarettes daily. She has been to [facility] with a complaint of a three-week history of increasing neuropathy in all four limbs in a stocking glove distribution in both the hands and the feet. The patient states she has been having associated weakness unchanged with exercise. She states she has been having difficulty ambulating and has had two mechanical falls in the past few weeks falls recently. There were no syncopal episodes. No chest pains or palpitations. She has had weight loss and states that food does not taste good. She denies any history of chronic cough or hemoptysis, denies fevers or night sweats. On admission she underwent a CT scan of the chest that revealed a bulla in the right lower lung field with possible internal septations. The patient has not had an x-ray in years. PAST SURGICAL HISTORY: History of cholecystectomy. SOCIAL HISTORY: No occupational exposures. History of tobacco use for many years, currently smoking 5 cigarettes daily. REVIEW OF SYSTEMS: Positive for weakness, loss of appetite and weight loss. No chest pain or palpitations. Positive for dyspnea on exertion and weakness. Positive for neuropathy. No fevers or chills. No night sweats. CURRENT MEDICATIONS: Lovenox, Neurontin, Norvasc. PHYSICAL EXAMINATION: General: The patient is a well-developed, thin female, awake and alert, in no acute distress. Vital Signs: She is afebrile. Blood pressure is 133/772, respiratory rate 18. HEENT: Head is normocephalic, atraumatic. Neck: Supple. Heart: Regular. S1, S2. Chest: Clear. Abdomen: Soft. Bowel sounds are positive. Extremities: No cyanosis or edema. LABORATORY: WBC is 9.9, hemoglobin 8.6, hematocrit 25.5, platelet count of 273, 000. INR is 0.86. Potassium is 3.3, BUN 9, creatinine 0.7, albumin 2.9. CEA is pending. A chest CT is as noted earlier. IMPRESSION: 1. Right lower lobe bulla with internal septations. 2. Peripheral neuropathy. 3. Weight loss from a possible underlying malignancy. 4. Anemia. PLAN: 1. Anemia workup. 2. Consider a GI evaluation with colonoscopy. 3. Obtain followup chest CT in two to three months to document stability of right lower lobe bulla, evidence of any interval change , would recommend a PET scan as well as biopsy . MARY GARZA M.D. PHIL/[id number] MTDD
--- NOTE | 2018-03-20 14:07 | CONSULT ---
Consult Consult Specialty:: PM&R Reason for Consultation:: EMG BLE, r/o radiculopathy versus neuropathy - History of Present Illness Chief Complaint: B hand and foot pins/ needles History of Present Illness: This is a 62 year old woman with a medical history of HTN, who presented to the ED 03/18/18 with worsening B hand and foot paresthesias over the past few months without inciting event. Feet had been doing worse until today when hands started bothering her more. R hand XR was negative for acute pathology. BLE arterial doppler US was negative for occlusion, showing moderate atherosclerosis. CT CAP 03/18/18 showed acute colitis, and RLL segment bulla. Neurology was consulted, who recommended EMG, LS CT scan, and q2 hour neuro checks with possible spinal tap. CT lumbar spine 03/20/18 shows L3-4 mild central stenosis with facet arthropathy, L4-5 moderate facet arthropathy wit central stenosis, and L5-S1 DJD with B neural foraminal narrowing. EMG BLE was performed. - Alcohol/Substance Use Hx Alcohol Use: Yes (2 glasses of wine daily) - Smoking History Smoking history: Current every day smoker Have you smoked in the past 12 months: No Aproximately how many cigarettes per day: 5 - Social History Usual Living Arrangement: With Spouse (in walk-up apartment with 7 steps to enter, previously Independent in ADLs without AD) Home Medications - Allergies Allergies/Adverse Reactions: Allergies Allergy/AdvReac Type Severity Reaction Status Date / Time No Known Allergies Allergy Verified 03/18/18 21:44 Review of Systems Findings/Remarks: denies fevers, chills, CP, changes in vision/ hearing/ mood, CP, SOB, abdominal pain, nausea, vomiting, constipation, diarrhea, muscle/ joint pain including in back, and dysuria. Notes urinary hesitency and paresthesias as per HPI Physical Exam Vital Signs: Vital Signs Temperature 98.1 F 03/20/18 10:00 Pulse Rate 101 H 03/20/18 10:00 Respiratory Rate 18 03/20/18 10:00 Blood Pressure 112/88 03/20/18 10:00 O2 Sat by Pulse Oximetry (%) 100 03/20/18 09:00 Musculoskeletal: Yes: Other (General: calm elderly AAF sitting in bed NAD MMT: 3 /5 B HF, 4/5 B KE then 4+/5 B DF/ EHL Sensory: Pinprick decreased below mid- fung and intact above; temperature Intact B feet Extremities: no BLE pitting edema, no B calf tenderness) Labs: CBC, BMP 03/20/18 07:50 03/20/18 06:00 Imaging - Results X-ray: Report Reviewed (as per HPI) Cat Scan: Report Reviewed (as per HPI) Ultrasound: Report Reviewed (as per HPI) Assessment/Plan Electrodiagnostics were performed, please see scanned images for details. 1) Predominately sensory axonal peripheral neuropathy. 2) Chronic and active R L5 radiculopathy. Impression: 1) Deficits mobility/ ADLs 2) Deconditioning 3) Gait abnormality 4) Predominately sensory axonal neuropathy 5) Chronic R L5 radiculopathy with lumbar DDD/ DJD/ central stenosis 6) hx HTN 7) Possible colitis 8) Lung mass 9) Anemia 10) BMI WNL 11) Up to date flu shot/ pneumovax 12) Active smoker Recommendations: 1) PT for strengthening and functional mobility 2) Falls, safety precautions 3) Cardiac precautions 4) DVT ppx: encourage ambulation 5) Denies constipation on current bowel regimen 6) Monitor CBC given anemia 7) Smoking cessation information at discharge 8) Continue neuropathy work-up as per Neuro; ddx includes but is not limited to : hypothyroidism, vitamin deficiencies (B12, folate, thiamine), liver disease, connective tissue disorders (SLE, RA), EtOH use/ abuse 9) Continue plan per primary team 10) Discharge planning: depending on progress with therapy, she may be able to return home with services versus short- term inpatient rehabilitation. Thank you for this referral.
--- NOTE | 2018-03-20 14:14 | PN ---
Teaching Attending Note Name of Resident: Sparkle Blanco ATTENDING PHYSICIAN STATEMENT I saw and evaluated the patient. I reviewed the resident's note and discussed the case with the resident. I agree with the resident's findings and plan as documented. SUBJECTIVE: No fever or chills. No pain, no OSB . reports improvement in her gait . cont to have parasthesia OBJECTIVE: NAD CV: RRR Lungs: CTAB Ext: no edema neuro : EOMI, round equal pupils ,reactive to light, no facial droop. nl facial sensation . strength 5/5 in upper and lower extremities proximally and distally. sensation to light touch NL. reflexes 2+ biceps and 1+ knee jerk B/ l. decreased proprioception. Unsteady gait, ataxia ASSESSMENT AND PLAN: 62 y/o Lady with h/o CCY and no medical care for many years who presented with parasthesia and weight loss. 1- Peripheral neuropathy and ataxia. no clear etiology. nutritional def vs paraneoplastic syndromes vs MM given anemia - follow tumor markers - EMG and nerve conduction studies . consult Dr. Benitez - CT of spine with no abnormalities - SPEP, UPEP pending - HIV pending - PET scan as out pt - follow zinc and mercury - LP to be determined by neuro after EMG results - add thiamine 2- Weight loss. need to r/o malignancy - PET scan as out pt 3- Normocytic anemia: follow iron studies . add ferritin SPEP and UPEP pending 6- Accidental findings: -L lung bullae : f/u as out pt with repeat CT in 2 months - uterine fibroid : out pt follow up Liver lesions: follow up with MRI as out pt - thick colon, no signs of colitis . hold off Abx add DVT PX
[2018-03-20] MEDS: HEPARIN NA (PORCINE) 5,000 UNITS/ML 1ML VIAL SQ SCH ×2 (14:37→21:09)
--- NOTE | 2018-03-20 15:07 | PN ---
Physical Exam: SUBJECTIVE: Patient seen and examined this morning. No episodes of syncope since. Continues to have some feelings of pins and needles in her b/l lower extremity. No new complaints. OBJECTIVE: Vital Signs Period Temp Pulse Resp BP Sys/Finley Pulse Ox Last 24 Hr 97.8 F-98.9 F 91-103 18-18 112-148/77-91 100-100 GENERAL: A&Ox3, NAD HEAD: NCAT EYES: PERRL, EOMI ENT: Moist mucous membranes NECK: No JVD LUNGS: CTAB, no wheezes HEART: Regular rate and rhythm, S1, S2 without murmur ABDOMEN: Soft, nontender, nondistended, normoactive bowel sounds, no guarding EXTREMITIES: 2+ pulses, no edema. 4/5 Muscle strength to handgrip, elbow flexion /extension, dorsiflexion, platarflexion. 3/5 Muscle strength to Hip flexion. Gross sensation intact throughout NEUROLOGICAL: Cranial nerves II through XII grossly intact. Normal speech, gait not observed. SKIN: Warm, dry Laboratory Results - last 24 hr 03/18/18 03/19/18 03/19/18 23:35 06:00 07:10 WBC RBC Hgb Hct MCV MCH MCHC RDW Plt Count MPV Absolute Neuts (auto) Neutrophils % Lymphocytes % Monocytes % Eosinophils % Basophils % Nucleated RBC % Sodium Potassium Chloride Carbon Dioxide Anion Gap BUN Creatinine Creat Clearance w eGFR Random Glucose Calcium Phosphorus Magnesium Iron 66 TIBC 150 L Iron Saturation 44 Transferrin 118 L Total Bilirubin AST ALT Alkaline Phosphatase Total Protein Albumin Carcinoembryonic Ag 3.3 Urine Protein Rheumatoid Arth Biomark 12.5 03/19/18 03/20/18 03/20/18 15:40 06:00 07:50 WBC 6.5 RBC 2.99 L Hgb 9.5 L Hct 29.0 L MCV 96.9 H MCH 31.8 MCHC 32.8 RDW 15.4 Plt Count 269 MPV 8.3 Absolute Neuts (auto) 5.0 Neutrophils % 77.3 Lymphocytes % 15.8 D Monocytes % 5.8 Eosinophils % 0.5 D Basophils % 0.6 Nucleated RBC % 0 Sodium 139 Potassium 3.7 Chloride 103 Carbon Dioxide 27 Anion Gap 9 BUN 6 L Creatinine 0.7 Creat Clearance w eGFR > 60 Random Glucose 83 Calcium 9.1 Phosphorus 2.5 Magnesium 1.7 L Iron TIBC Iron Saturation Transferrin Total Bilirubin 0.5 AST 22 ALT 23 Alkaline Phosphatase 98 Total Protein 6.5 Albumin 3.2 L Carcinoembryonic Ag Urine Protein 44 H Rheumatoid Arth Biomark Microbiology 03/19/18 13:30 Stool Clostridium difficile Antigen (NOELLE) - Preliminary 03/19/18 13:30 Stool Clostridium difficile Toxin Assay - Preliminary Active Medications Amlodipine Besylate (Norvasc -) 5 mg PO DAILY [facility] Last Admin: 03/20/18 11:01 Dose: 5 mg Gabapentin (Neurontin -) 100 mg PO BID [facility] Last Admin: 03/20/18 11:01 Dose: 100 mg Heparin Sodium (Porcine) (Heparin -) 5,000 unit SQ TID [facility] Nicotine (Nicoderm Patch -) 21 mg TD DAILY [facility] Last Admin: 03/20/18 11: Dose: 21 mg IMAGING: -EKG: SINUS RHYTHM WITH MARKED SINUS ARRHYTHMIA WITH SHORT DC, POSSIBLE LEFT ATRIAL ENLARGEMENT, INCOMPLETE RIGHT BUNDLE BRANCH BLOCK, VR 87, QTc 476 -DUPLEX LE: Monophasic waveform in the right and left lower extremity deep arterial system with atheromatous plaques, as described above compatible with moderate atherosclerotic disease and without evidence of occlusion. Correlate clinically to determine further evaluation. -Right Hand/Wrist XRay: AP, lateral and oblique views of the right hand and wrist reveal no sign of a gross fracture, subluxation or bone destruction. Blastic or lytic changes are not seen. There is no sign of swelling, foreign body or soft tissue air. If symptoms persist, further imaging and orthopedic consultation may be of help. -CT A/P: Possible acute colitis as noted above. A 1.4 cm mildly enhancing left hepatic lobe focus is seen probably on the basis of normal variation and less likely representing a focal nonspecific lesion. Correlate with nonemergent contrast-enhanced multiphase MRI. Probable diffuse hepatic steatosis. 4.5 cm partially calcified uterine leiomyoma. A focal atherosclerotic stenosis is seen within the left common iliac artery which is at least moderate in degree. -CT Chest: No CT evidence of acute pathology. A 2.3 cm right lower lobe superior segment bulla is noted containing several slightly thickened internal septations. Correlate with 2 month follow-up CT to document stability and exclude developing pathology. Several subcentimeter bilateral apical subpleural bullae are seen. -CT L-Spine without contrast: No acute bony abnormalities are seen. No evidence of compression deformities, spondylolisthesis or spondylolysis. L2-L3 Circumferential disc bulge. L3-L4 Circumferential disc bulge. Facet joint arthropathy. Mild central spinal canal stenosis. L4-L5 Circumferential disc bulge. Moderate degenerative facet joint arthropathy right greater than the left. Thickened ligamentum flavum. Central spinal canal stenosis. L5-S1 Degenerative facet joint arthropathy. Bilateral neural foraminal narrowing. Posterior annular bulge. ASSESSMENT/PLAN: 62 y/o F with PMHx of HTN presents with parasthesias and weakness for multiple weeks #Parasthesias, lower extremity ataxia -Unclear etiology; Consider paraneoplastic syndrome secondary to lung mass, Nutritional deficiency, Multiple myeloma -B12, TSH noted above -A1c, ESR, CRP, TIERRA, RF pending -Tumor markers, SPEP, UPEP, Zinc, Mercury pending -Gabapentin 100mg PO BID -Neurology (Dr. Angel) consulted, Appreciate rec's -CT L-spine noted above -Physical therapy evaluation -Neurochecks Q2H -Urgent nerve conduction testing with myography of the lower extremities ordered ; LP Pending results -PMnR (Dr. Benitez) consulted, appreciate rec's -HIV testing ordered this AM #Lung Mass -Noted on CT chest, Concerns for malignancy given Smoking hx, weight loss -Pulmonology (Dr. Thayer) consulted, Appreciate Rec's #Possible colitis -Noted on CT; Patient mentions her 1-2 BMs per week, Benign abdominal exam -No indication for antibiotics at this time #Normocytic anemia -Reticulocyte count, serum iron, transferrin, TIBC pending -SPEP, UPEP #FEN -PO Fluids -Lytes WNL -Regular diet #PPx -DVT: Lovenox Dispo: med-surg Visit type - Emergency Visit Emergency Visit: Yes ED Registration Date: 03/18/18 Care time: The patient presented to the Emergency Department on the above date and was hospitalized for further evaluation of their emergent condition. - New Patient This patient is new to me today: No - Critical Care Critical Care patient: No - Discharge Referral Referred to [facility] No
--- NOTE | 2018-03-20 20:58 | PN ---
Progress Note, Physician History of Present Illness: events note d Chart reviwed Seen by Rehab NCv done No demylination Ct L spine noted - Current Medication List Current Medications: Active Medications Amlodipine Besylate (Norvasc -) 5 mg PO DAILY [facility] Last Admin: 03/20/18 11:01 Dose: 5 mg Folic Acid (Folic Acid -) 1 mg PO DAILY [facility] Gabapentin (Neurontin -) 100 mg PO BID [facility] Last Admin: 03/20/18 11:01 Dose: 100 mg Heparin Sodium (Porcine) (Heparin -) 5,000 unit SQ TID [facility] Last Admin: 03/20/18 14:37 Dose: 5,000 unit Nicotine (Nicoderm Patch -) 21 mg TD DAILY [facility] Last Admin: 03/20/18 11:01 Dose: 21 mg Thiamine HCl (Vitamin B1 -) 100 mg PO BID [facility] - Objective Vital Signs: Vital Signs Temperature 97.8 F 03/20/18 14:11 Pulse Rate 103 H 03/20/18 14:11 Respiratory Rate 18 03/20/18 14:11 Blood Pressure 135/91 03/20/18 14:11 O2 Sat by Pulse Oximetry (%) 100 03/20/18 09:00 Constitutional: Yes: Well Nourished Eyes: Yes: WNL Labs: CBC, BMP 03/20/18 07:50 03/20/18 06:00 INR, PTT INR 0.86 (0.83-1.09) 03/18/18 16:00 Problem List - Problems (1) Neuropathy Assessment/Plan: No Lp Pt Fall assess Rehab Blood work Smoking cessation Code(s): G62.9 - POLYNEUROPATHY, UNSPECIFIED
[2018-03-20] MEDS: THIAMINE HCL 100 MG TABLET (FP) PO SCH (21:08)
[2018-03-21] MEDS ORDERED: ACETAMINOPHEN 325 MG TABLET (FP) PO ONE (01:51)
[2018-03-21] MEDS: HEPARIN NA (PORCINE) 5,000 UNITS/ML 1ML VIAL SQ SCH ×2 (06:01→13:57)
[2018-03-21] MEDS ORDERED: FOLIC ACID 1 MG TABLET (FP) PO SCH (10:00)
[2018-03-21] MEDS: THIAMINE HCL 100 MG TABLET (FP) PO SCH (10:09)
[2018-03-21] MEDS: amLODIPine BESYLATE 5 MG TABLET (FP) PO SCH (10:09)
[2018-03-21] MEDS: GABAPENTIN 100 MG CAPSULE (FP) PO SCH (10:09)
[2018-03-21] MEDS: NICOTINE 21 MG/24 HOURS TOPICAL PATCH TD SCH (10:11)
[2018-03-21] MEDS: MAGNESIUM SULF 50% (8.12 MEQ/2 ML-1 GM VIAL) IVPB ONE ×2 (12:12→13:04)
[2018-03-21] MEDS ORDERED: MAGNESIUM OXIDE 400 MG TABLET (FP) PO ONE (13:00)
[2018-03-21 13:55] VITALS: BP 104/75; PULSE 101; TEMP 97.5
--- NOTE | 2018-03-21 14:25 | PN ---
Teaching Attending Note Name of Resident: Sparkle Blanco ATTENDING PHYSICIAN STATEMENT I saw and evaluated the patient. I reviewed the resident's note and discussed the case with the resident. I agree with the resident's findings and plan as documented. SUBJECTIVE: No fever or chills . feels parasthesia is no longer in her legs and still in her knees, feet and hands. no weakness. no SOB , no cp or Abd pain. was confused over night , and admits to that . OBJECTIVE: NAD CV: RRR Lungs: CTAB Ext: no edema neuro: EOMI, round equal pupils ,reactive to light, no facial droop. nl facial sensation . strength 5/5 in upper and lower extremities proximally and distally except for hip flexion 4/5 today. sensation to light touch NL. reflexes 2+ biceps and 1+ knee jerk B/l. decreased proprioception. Unsteady gait, ataxia breasts: no masses , skin lesions or galactorrhea . no LAP in axillary lesions ASSESSMENT AND PLAN: 62 y/o Lady with h/o CCY and no medical care for many years who presented with parasthesia and weight loss. 1- Peripheral neuropathy and ataxia. no clear etiology. nutritional def vs paraneoplastic syndromes - follow tumor markers ( CEA nl ) - EMG and nerve conduction studies reviewed. axonal sensory neuropathy - SPEP, UPEP pending - HIV neg - PET scan as out pt - follow zinc and mercury - No LP per neuro - Non urgent MRI. can be done as out pt as well 2- Weight loss. need to r/o malignancy - PET scan as out pt - f/u SPEP, UPEP 3- Normocytic anemia: follow iron studies. add ferritin SPEP and UPEP pending 6- Accidental findings: -L lung bullae : f/u as out pt with repeat CT in 2 months - uterine fibroid : out pt follow up Liver lesions: follow up with MRI as out pt - thick colon, no signs of colitis . hold off Abx dispo : rehab vs home with VNS.
--- NOTE | 2018-03-21 15:31 | DS ---
Physical Exam: SUBJECTIVE: Patient seen and examined this morning. No acute overnight events as per nursing staff. No new complaints. OBJECTIVE: Vital Signs Period Temp Pulse Resp BP Sys/Finley Pulse Ox Last 24 Hr 97.5 F-98.3 F 97-101 18-18 104-132/75-94 98 PHYSICAL EXAM GENERAL: A&Ox3, NAD HEAD: NCAT EYES: PERRL, EOMI ENT: Moist mucous membranes NECK: No JVD LUNGS: CTAB, no wheezes HEART: Regular rate and rhythm, S1, S2 without murmur ABDOMEN: Soft, nontender, nondistended, normoactive bowel sounds, no guarding EXTREMITIES: 2+ pulses, no edema. 4/5 Muscle strength to handgrip, elbow flexion /extension, dorsiflexion, platarflexion. 3/5 Muscle strength to Hip flexion. Gross sensation intact throughout. Unsteady, Ataxic gait NEUROLOGICAL: Cranial nerves II through XII grossly intact. Normal speech, gait not observed. SKIN: Warm, dry LABS Laboratory Last Values WBC 6.5 K/mm3 (4.0-10.0) 03/20/18 07:50 RBC 2.99 M/mm3 (3.60-5.2) L 03/20/18 07:50 Hgb 9.5 GM/dL (10.7-15.3) L 03/20/18 07:50 Hct 29.0 % (32.4-45.2) L 03/20/18 07:50 MCV 96.9 fl (80-96) H 03/20/18 07:50 MCH 31.8 pg (25.7-33.7) 03/20/18 07:50 MCHC 32.8 g/dl (32.0-36.0) 03/20/18 07:50 RDW 15.4 % (11.6-15.6) 03/20/18 07:50 Plt Count 269 K/MM3 (134-434) 03/20/18 07:50 MPV 8.3 fl (7.5-11.1) 03/20/18 07:50 Absolute Neuts (auto) 5.0 K/mm3 (1.5-8.0) 03/20/18 07:50 Neutrophils % 77.3 % (42.8-82.8) 03/20/18 07:50 Lymphocytes % 15.8 % (8-40) D 03/20/18 07:50 Monocytes % 5.8 % (3.8-10.2) 03/20/18 07:50 Eosinophils % 0.5 % (0-4.5) D 03/20/18 07:50 Basophils % 0.6 % (0-2.0) 03/20/18 07:50 Nucleated RBC % 0 % (0-0) 03/20/18 07:50 ESR 28 mm/hr (0-30) 03/19/18 00:05 Retic Count 1.05 % (0.5-1.5) 03/19/18 06:00 PT with INR 10.10 SEC (9.7-13.0) 03/18/18 16:00 INR 0.86 (0.83-1.09) 03/18/18 16:00 Sodium 139 mmol/L (136-145) 03/20/18 06:00 Potassium 3.7 mmol/L (3.5-5.1) 03/20/18 06:00 Chloride 103 mmol/L (98-107) 03/20/18 06:00 Carbon Dioxide 27 mmol/L (21-32) 03/20/18 06:00 Anion Gap 9 MMOL/L (8-16) 03/20/18 06:00 BUN 6 mg/dL (7-18) L 03/20/18 06:00 Creatinine 0.7 mg/dL (0.55-1.3) 03/20/18 06:00 Creat Clearance w eGFR > 60 (>60) 03/20/18 06:00 POC Glucometer 91.55015 UNITS (80-120) 03/18/18 20:59 Random Glucose 83 mg/dL (74-106) 03/20/18 06:00 Hemoglobin A1c % 4.5 % (4.2-6.3) 03/18/18 21:14 Calcium 9.1 mg/dL (8.5-10.1) 03/20/18 06:00 Phosphorus 2.5 mg/dL (2.5-4.9) 03/20/18 06:00 Magnesium 1.7 mg/dL (1.8-2.4) L 03/20/18 06:00 Iron 66 ug/dL (27-139) 03/19/18 06:00 TIBC 150 ug/dL (250-450) L 03/19/18 06:00 Iron Saturation 44 % (15-55) 03/19/18 06:00 Transferrin 118 mg/dL (200-370) L 03/19/18 06:00 Ferritin 1392.5 ng/ml (8-388) H 03/21/18 06:00 Total Bilirubin 0.5 mg/dL (0.2-1) 03/20/18 06:00 AST 22 U/L (15-37) 03/20/18 06:00 ALT 23 U/L (13-61) 03/20/18 06:00 Alkaline Phosphatase 98 U/L (45-117) 03/20/18 06:00 C-Reactive Protein < 0.3 MG/DL (0.00-0.3) 03/18/18 23:35 Total Protein 6.5 g/dl (6.4-8.2) 03/20/18 06:00 Albumin 3.2 g/dl (3.4-5.0) L 03/20/18 06:00 Carcinoembryonic Ag 3.3 ng/mL (0.0-4.7) 03/19/18 07:10 CA 19-9 Antigen 125 U/mL (0-35) H 03/20/18 07:50 Vitamin B12 573 pg/ml (193-986) 03/18/18 16:00 TSH 1.74 uIU/ml (0.358-3.74) 03/18/18 23:35 Urine Protein 44 mg/dl (5.0-11.9) H 03/19/18 15:40 Stool Occult Blood Negative (NEGATIVE) 03/19/18 13:28 Rheumatoid Arth Biomark 12.5 IU/mL (0.0-13.9) 03/18/18 23:35 TIERRA Screen Negative (.) 03/18/18 23:35 HIV Genotype Non reactive (Non Reactive) 03/20/18 12:22 Microbiology 03/19/18 13:30 Stool Salmonella/Shigella Culture - Final NO GROWTH OF SALMONELLA OR SHIGELLA SPECIES OBTAINED 03/19/18 13:30 Stool Campylobacter Culture - Final NO GROWTH OF CAMPYLOBACTER SPECIES OBTAINED 03/19/18 13:30 Stool Yersinia Culture - Final NO GROWTH OF YERSINIA SPECIES OBTAINED 03/19/18 13:30 Stool Vibrio Culture - Final NO GROWTH OF VIBRIO SPECIES OBTAINED 03/19/18 13:30 Stool Escherichia coli 0157 Culture - Final NO GROWTH OF E COLI 0157 OBTAINED 03/19/18 13:30 Stool Clostridium difficile Antigen (NOELLE) - Final 03/19/18 13:30 Stool Clostridium difficile Toxin Assay - Final IMAGING: -EKG: SINUS RHYTHM WITH MARKED SINUS ARRHYTHMIA WITH SHORT MS, POSSIBLE LEFT ATRIAL ENLARGEMENT, INCOMPLETE RIGHT BUNDLE BRANCH BLOCK, VR 87, QTc 476 -DUPLEX LE: Monophasic waveform in the right and left lower extremity deep arterial system with atheromatous plaques, as described above compatible with moderate atherosclerotic disease and without evidence of occlusion. Correlate clinically to determine further evaluation. -Right Hand/Wrist XRay: AP, lateral and oblique views of the right hand and wrist reveal no sign of a gross fracture, subluxation or bone destruction. Blastic or lytic changes are not seen. There is no sign of swelling, foreign body or soft tissue air. If symptoms persist, further imaging and orthopedic consultation may be of help. -CT A/P: Possible acute colitis as noted above. A 1.4 cm mildly enhancing left hepatic lobe focus is seen probably on the basis of normal variation and less likely representing a focal nonspecific lesion. Correlate with nonemergent contrast-enhanced multiphase MRI. Probable diffuse hepatic steatosis. 4.5 cm partially calcified uterine leiomyoma. A focal atherosclerotic stenosis is seen within the left common iliac artery which is at least moderate in degree. -CT Chest: No CT evidence of acute pathology. A 2.3 cm right lower lobe superior segment bulla is noted containing several slightly thickened internal septations. Correlate with 2 month follow-up CT to document stability and exclude developing pathology. Several subcentimeter bilateral apical subpleural bullae are seen. -CT L-Spine without contrast: No acute bony abnormalities are seen. No evidence of compression deformities, spondylolisthesis or spondylolysis. L2-L3 Circumferential disc bulge. L3-L4 Circumferential disc bulge. Facet joint arthropathy. Mild central spinal canal stenosis. L4-L5 Circumferential disc bulge. Moderate degenerative facet joint arthropathy right greater than the left. Thickened ligamentum flavum. Central spinal canal stenosis. L5-S1 Degenerative facet joint arthropathy. Bilateral neural foraminal narrowing. Posterior annular bulge. -EMG: This is an abnormal study. There is electrophysiologcial evidence of a predominantly sensory axonal peripheral neuropathy. There is also evidence of a chronic and active R L5 radiculopathy. HOSPITAL COURSE: Date of Admission:03/18/18 Date of Discharge: 03/21/18 62 y/o F presented with parasthesias and weakness for multiple weeks. Neurology was consulted; EMG, other imaging and lab workup were done (Noted above). Patient was started on gabapentin, worked with PT and her paresthesias improved. Chest CT revealed a Lung bulla for which pulmonology was consulted. Patient additionally mentioned weight loss recently and an out patient PET scan was recommended. She was found to have normocytic anemia for which iron studies were done. Patient was discharged home with strict instructions to follow up with her PCP for other lab results including SPEP and UPEP and for follow up imaging. Minutes to complete discharge: 45 Discharge Summary Reason For Visit: WEIGHT LOSS ,LUNG MASS Current Active Problems Anemia (Acute) Lung bullae (Acute) Neuropathy (Acute) Tobacco abuse counseling (Acute) Weight loss (Acute) Tobacco abuse (Chronic) Condition: Stable - Instructions Diet, Activity, Other Instructions: You were admitted to the hospital because you felt some weakness and numbness ( neuropathy ) Physician Follow ups 1. PCP: Dr. Nancy Baer, Please call to schedule follow up in one week. Additionally, you should discuss with her the Leiomyoma ( fibroid in your uterus ) findings on imaging, and possible OBGYN referral for management 2. Neurology: Dr. Angel in one week, to further manage your weakness and numbness 3. Pulmonology: Dr. Thayer in 2 weeks, to further manage a Lung bulla found on imaging and to schedule a CT Chest in 2 months to further manage. Additionally you may schedul an Outpatient Pet Scan 4. GI: Dr. Becker in two weeks as you likely need a colonoscopy and had some liver abnormalities on imaging 5. Hematology: Dr. Beard in one week as you Anemia. Medications being added to your regimen 1. Amlodipine 5mg Daily 2. Gabapentin 100mg twice a day 3. Folic acid 1mg daily 4. Thiamine 100mg Twice a day 5. Nicoderm Patch. It is very important you DO NOT SMOKE FOR 24 HOURS AFTER REMOVING THE PATCH AND DO NOT SMOKE WHILE WEARING THE PATCH Please use the patches as follows: 21mg patch daily for 6 weeks. Then 14mg patch daily for 2 weeks. Finally, 7mg patch daily for 2 weeks. Please continue all other medications as prescribed. Please return to the ER if you have any signs or symptoms of chest pain, shortness of breath, uncontrollable fever, chills, nausea, vomiting, numbness, tingling, or weakness in any part of your body, changes in vision, or slurred speech. Please return to the ER if symptoms persist, worsen, or new symptoms arise. Some tests need to be followed by your doctors : - UPEP, SPEP - Selinium level , zinc level , Mercury level - Ca 19-9 -you need PET scan - You need mammogram , pap smear, and colonoscopy and all age appropriate cancer screening Referrals: Ajith Thayer MD [Staff Physician] - Nancy Baer MD [Primary Care Provider] - Laly Becker MD [Staff Physician] - Abdulaziz Beard MD [Staff Physician] - Jared Angel MD [Staff Physician] - Disposition: VNS/HOME HEALTH CARE - Home Medications Comprehensive Discharge Medication List: Ambulatory Orders Amlodipine Besylate [Norvasc -] 5 mg PO DAILY #30 tablet 03/21/18 Folic Acid - 1 mg PO DAILY #30 tablet 03/21/18 Gabapentin [Neurontin -] 100 mg PO BID #60 capsule 03/21/18 Nicotine Patch [Nicoderm Patch -] 1 mg TD DAILY #42 patch 03/21/18 Nicotine Patch [Nicoderm Patch -] 1 patch TD DAILY #14 patch 03/21/18 Nicotine Patch [Nicoderm Patch -] 1 patch TD DAILY #14 patch 03/21/18 Thiamine HCl [Vitamin B1 -] 100 mg PO BID #60 tablet 03/21/18 This patient is new to me today: No Emergency Visit: Yes ED Registration Date: 03/18/18 Care time: The patient presented to the Emergency Department on the above date and was hospitalized for further evaluation of their emergent condition. Critical Care patient: No - Discharge Referral Referred to [facility] No
== END 2018-03-21 16:10 | disposition home health service (06) | DRG 48 ==
LOC: JER 12:54 → JERFT 12:54 → JERBED 19:55 → OBSVTOIN 22:00 → J7W 03-19 01:46
PROVIDERS: ADMIT Internal Medicine; ATTEND Internal Medicine
DX: G62.9 Polyneuropathy, unspecified (principal); K76.0 Fatty (change of) liver, not elsewhere classified; I10 Essential (primary) hypertension; R91.8 Other nonspecific abnormal finding of lung field; I77.1 Stricture of artery; D64.9 Anemia, unspecified; F17.210 Nicotine dependence, cigarettes, uncomplicated; R63.4 Abnormal weight loss; J43.9 Emphysema, unspecified; D25.9 Leiomyoma of uterus, unspecified; E16.2 Hypoglycemia, unspecified; R27.0 Ataxia, unspecified; K52.9 Noninfective gastroenteritis and colitis, unspecified
CPT/HCPCS: 36415; 71260-TC; 72131-TC; 73110-TC-RT-FY; 73130-TC-RT-FY; 74177-TC; 80053; 82272; 82378; 82607; 82728; 82962; 83036; 83540; 83550; 83631; 83735; 83825; 84100; 84155; 84156; 84165; 84255; 84443; 84466; 84630; 85025; 85027; 85044; 85610; 85651; 86038; 86140; 86301; 86431; 87045; 87046; 87324; 87389; 87449; 90688; 90732; 93005; 93010; 93925-TC; 95860-TC; 97116-GP; 97161-GP; 99284-25; G0008; G0009; G0378; J1644; J7030

== ENCOUNTER 2018-04-08 18:52 | Inpatient (IN) | payer OTHER ==
--- NOTE | 2018-04-08 19:18 | PDOC ---
Attending Attestation - Resident Resident Name: AlexyvanAuraSunny - ED Attending Attestation I have performed the following: I have examined & evaluated the patient, The case was reviewed & discussed with the resident, I agree w/resident's findings & plan, Exceptions are as noted - HPI HPI: 04/08/18 21:28 62 yo female reports fainting while getting off the toilet - Physicial Exam PE: 04/08/18 21:29 wnwd 62 yo femsle head ncat neck no c spien midline tenderness lungs cta b/l cvs [id number] abd nontender extremities no deformities, left knee eschar skin warm and dry neuro axox3,ambulatory 04/08/18 21:30 - Medical Decision Making 04/08/18 21:31 troponin is negaitve cbc mild anemia imp syncope will admit to tele
--- NOTE | 2018-04-08 19:33 | PDOC ---
History of Present Illness - General Chief Complaint: Injury Stated Complaint: FALL Time Seen by Provider: 04/08/18 19:18 - History of Present Illness Initial Comments: The patient is a 62F w/ a history of HTN who presents for evaluation s/p fall from sitting. The patient endorses LOC and does not recall if she hit her head. She states she was pulling her pants up from sitting on the toilet when this occurred. She then remembers becoming conscious on the floor. She thinks she was out for approximately 3-4 minutes. Her neighbor called EMS. She denies recent illness, fevers/chills, IRAHETA, vision changes, chest pain, SOB, abdominal pain, N/V/C/D, or changes in sensation Reports recent fall approximately 1 week ago under similar conditions PCP: Dr. Baer 04/08/18 19:43 Past History - Past Medical History Allergies/Adverse Reactions: Allergies Allergy/AdvReac Type Severity Reaction Status Date / Time No Known Allergies Allergy Verified 04/08/18 19:10 Home Medications: Ambulatory Orders Amlodipine Besylate [Norvasc -] 5 mg PO DAILY #30 tablet 03/21/18 Folic Acid - 1 mg PO DAILY #30 tablet 03/21/18 Gabapentin [Neurontin -] 100 mg PO BID #60 capsule 03/21/18 Nicotine Patch [Nicoderm Patch -] 1 mg TD DAILY #42 patch 03/21/18 Nicotine Patch [Nicoderm Patch -] 1 patch TD DAILY #14 patch 03/21/18 Nicotine Patch [Nicoderm Patch -] 1 patch TD DAILY #14 patch 03/21/18 Thiamine HCl [Vitamin B1 -] 100 mg PO BID #60 tablet 03/21/18 COPD: No - Surgical History Cholecystectomy: Yes - Immunization History Immunization Up to Date: Yes - Suicide/Smoking/Psychosocial Hx Smoking History: Never smoked Have you smoked in the past 12 months: No Number of Cigarettes Smoked Daily: 5 Information on smoking cessation initiated: No 'Breaking Loose' booklet given: 03/19/18 Hx Alcohol Use: No Drug/Substance Use Hx: No Substance Use Type: None Review of Systems - Review of Systems Able to Perform ROS?: Yes Comments:: GENERAL/CONSTITUTIONAL: No fever or chills. No weakness HEAD, EYES, EARS, NOSE AND THROAT: No change in vision. No ear pain or discharge. No sore throat CARDIOVASCULAR: No chest pain or shortness of breath RESPIRATORY: Denies cough, hemoptysis GASTROINTESTINAL: No nausea, vomiting, diarrhea or constipation GENITOURINARY: No dysuria, frequency, or change in urination MUSCULOSKELETAL: No joint or muscle swelling or pain. No neck or back pain SKIN: No rash NEUROLOGIC: No headache, vertigo, or change in strength/sensation ENDOCRINE: No increased thirst. No abnormal weight change HEMATOLOGIC/LYMPHATIC: No anemia, easy bleeding, or history of blood clots ALLERGIC/IMMUNOLOGIC: No hives or skin allergy 04/08/18 19:45 Is the patient limited Belgian proficient: No *Physical Exam - Vital Signs Last Vital Signs Temp Pulse Resp BP Pulse Ox 97.1 F L 78 16 156/86 97 04/08/18 19:10 04/08/18 19:10 04/08/18 19:10 04/08/18 19:10 04/08/18 19:10 - Physical Exam Comments: GENERAL: Awake, alert, and fully oriented, in no acute distress HEAD: No signs of trauma, normocephalic, atraumatic EYES: PERRLA, EOMI, sclera anicteric, conjunctiva clear ENT: Hearing grossly normal, nares patent, oropharynx clear without exudates. Moist mucosa LUNGS: No distress, speaks full sentences, clear to auscultation bilaterally HEART: Regular rate and rhythm, normal S1 and S2, no murmurs appreciated, peripheral pulses normal and equal bilaterally ABDOMEN: Soft, nontender, normoactive bowel sounds. No guarding, no rebound EXTREMITIES: L knee wound with eschar no active hemorrhage, no joint effusion or warmth; normal range of motion, no edema. No clubbing or cyanosis NEUROLOGICAL: Cranial nerves II through XII grossly intact. Normal speech, no focal sensorimotor deficits SKIN: Warm, Dry, normal turgor 04/08/18 19:46 Moderate Sedation - Procedure Monitoring Vital Signs: Procedure Monitoring Vital Signs Temperature 97.1 F L 04/08/18 19:10 Pulse Rate 78 04/08/18 19:10 Respiratory Rate 16 04/08/18 19:10 Blood Pressure 156/86 04/08/18 19:10 O2 Sat by Pulse Oximetry (%) 97 04/08/18 19:10 ED Treatment Course - LABORATORY CBC & Chemistry Diagram: 04/08/18 20:30 04/08/18 20:30 Medical Decision Making - Medical Decision Making The patient is a 62F w/ a history of HTN and recent fall who presents for evaluation of syncopal fall at home just [employer] ED Course CMP, CBC, Cardiac enzymes, UA, EtOH ECG CXR, CT head w/o NS 500cc once Tylenol 975mg PO once 04/08/18 19:47 EtOH neg No ULICES No leukocytosis Mild anemia, Hgb 9 Lytes wnl LFTs wnl CXR w/o evidence of PNA, PNS, or widened mediastinum Plan for admission to obs No recent ECHO or stress test Initial trop neg ECG w/ possible a-fib, HR 89, Prolonged QTc 506 -will repeat as no a-fib on 03/18/2018 Repeat w/o a-fib, QTc 575 -Will draw and give Mg Dispo: Admit 04/08/18 21:28 *DC/Admit/Observation/Transfer Diagnosis at time of Disposition: Fall Qualifiers: Encounter type: initial encounter Qualified Code(s): W19.XXXA - Unspecified fall, initial encounter Syncope Qualifiers: Syncope type: unspecified Qualified Code(s): R55 - Syncope and collapse Hypertension Qualifiers: Hypertension type: unspecified Qualified Code(s): I10 - Essential (primary) hypertension - Discharge Dispostion Condition at time of disposition: Stable Decision to Admit order: Yes - Referrals Referrals: Jaiden Baer [Non Staff, Medical] - - Patient Instructions Printed Discharge Instructions: How to Prevent Falls - Post Discharge Activity
[2018-04-08] MEDS ORDERED: SODIUM CHLORIDE 0.9% 500 ML INFUS.BAG IV ONE (19:42)
[2018-04-08] MEDS ORDERED: ACETAMINOPHEN 325 MG TABLET (FP) PO ONE (19:42)
[2018-04-08 20:41] LABS: HEMATOCRIT 25.9 % (32.4-45.2); HEMOGLOBIN 9.2 GM/dL (10.7-15.3); MCH 34.2 pg (25.7-33.7); MCHC 35.5 g/dl (32.0-36.0); MEAN CELL VOLUME 96.3 fl (80-96); MEAN PLT VOLUME 7.1 fl (7.5-11.1); PLATELET COUNT 431 K/MM3 (134-434); RBC 2.69 M/mm3 (3.60-5.2); RDW 16.1 % (11.6-15.6); WHITE BLOOD COUNT 6.7 K/mm3 (4.0-10.0)
[2018-04-08] MEDS ORDERED: ACETAMINOPHEN 325 MG TABLET (FP) ONE (20:55)
[2018-04-08 21:04] LABS: URINE APPEARANCE CLEAR; URINE BILIRUBIN NEGATIVE (<2.0 mg/dL); URINE COLOR YELLOW; URINE GLUCOSE (UA) NEGATIVE (NEGATIVE); URINE KETONE TRACE (NEGATIVE); URINE LEUK ESTERASE NEGATIVE (NEGATIVE); URINE NITRITE NEGATIVE (NEGATIVE); URINE PROTEIN NEGATIVE (NEGATIVE)
[2018-04-08 21:12] LABS: ALBUMIN 2.8 g/dl (3.4-5.0); ALK PHOS 139 U/L (45-117); BILIRUBIN,TOTAL 0.8 mg/dL (0.2-1); BLOOD UREA NITROGEN 7 mg/dL (7-18); CALCIUM 8.9 mg/dL (8.5-10.1); CHLORIDE 104 mmol/L (98-107); CO2 22 mmol/L (21-32); CREATININE 0.5 mg/dL (0.55-1.3); GLUCOSE,RANDOM 50 mg/dL (74-106); SGPT/ALT 27 U/L (13-61); SODIUM 140 mmol/L (136-145); TOT PROT 6.2 g/dl (6.4-8.2)
[2018-04-08 21:13] LABS: ANION GAP 13 MMOL/L (8-16); SGOT/AST 30 U/L (15-37)
[2018-04-08] MEDS ORDERED: MAGNESIUM SULF 50% (8.12 MEQ/2 ML-1 GM VIAL) IVPB ONE (22:00)
[2018-04-08] MEDS ORDERED: MAGNESIUM SULF 50% (8.12 MEQ/2 ML-1 GM VIAL) ONE (22:08)
--- NOTE | 2018-04-08 22:12 | PN ---
Teaching Attending Note Name of Resident: Arben Ruff ATTENDING PHYSICIAN STATEMENT I saw and evaluated the patient. I reviewed the resident's note and discussed the case with the resident. I agree with the resident's findings and plan as documented. SUBJECTIVE: Patient is a 62 year old woman with a history of HTN, cholecystectomy, alcohol abuse, Tobacco use, right lung bullae, ?recent unintended weight loss and ? peripheral neuropathy who presents after a fall from sitting position. The patient had LOC and does not recall if she hit her head. She states she was pulling her pants up from sitting on the toilet when this occurred. She then remembers becoming conscious on the floor. She thinks she was out for approximately 3-4 minutes. Her neighbor called EMS. She denies recent illness, fevers/chills, IRAHETA, vision changes, chest pain, SOB, abdominal pain, N/V/C/D, or changes in sensation. Blood glucose was low -50 mg/dl - on arrival in the ER. Reports recent fall approximately 1 week ago under similar conditions. Was seen by neurology last month after a similar presentation and a spinal tap was recommended. A recent HIV test was negative. OBJECTIVE: Alert, frail and orthostatic Vital Signs Period Temp Pulse Resp BP Sys/Finley Pulse Ox Last 24 Hr 97.1 F 78 16 156/86 97-97 HEENT: No Jaundice, eye redness or discharge, PERRLA, EOMI. Normocephalic, atraumatic; alopecia. External ears are normal and hearing is grossly intact. No nasal discharge. Poor dentition. Neck: Supple, nontender. No palpable adenopathy or thyromegaly. No JVD Chest: Good effort. Clear to auscultation and percussion. Heart: Regular. No S3, rub or murmur Abdomen: Not distended, soft, nontender and no HSM. No rebound or guarding. Normoactive bowel sounds. Ext: Peripheral pulses intact. No leg edema. Skin: Warm and dry. No petechiae, rash or ecchymosis. Neuro: Alert. Oriented x3. CN 2-12 grossly intact. Sensation grossly intact in all four extremities and DTR are symmetric. Home Medications Medication Instructions Recorded Amlodipine Besylate [Norvasc -] 5 mg PO DAILY #30 tablet 03/21/18 Folic Acid - 1 mg PO DAILY #30 tablet 03/21/18 Gabapentin [Neurontin -] 100 mg PO BID #60 capsule 03/21/18 Nicotine Patch [Nicoderm Patch -] 1 mg TD DAILY #42 patch 03/21/18 Nicotine Patch [Nicoderm Patch -] 1 patch TD DAILY #14 patch 03/21/18 Nicotine Patch [Nicoderm Patch -] 1 patch TD DAILY #14 patch 03/21/18 Thiamine HCl [Vitamin B1 -] 100 mg PO BID #60 tablet 03/21/18 Abnormal Lab Results 04/08/18 04/08/18 04/08/18 20:30 20:30 21:00 RBC 2.69 L Hgb 9.2 L Hct 25.9 L MCV 96.3 H MCH 34.2 H RDW 16.1 H MPV 7.1 L D Creatinine 0.5 L Random Glucose 50 L Alkaline Phosphatase 139 H Total Protein 6.2 L Albumin 2.8 L Urine Ketones Trace H Urine Urobilinogen 2.0 H ASSESSMENT AND PLAN: 1. Syncope - Unexplained, but orthostasis may be due to peripheral neuropathy. With history of alcohol abuse she may also have chronic cerebellar injury. However recent weight loss, low albumin, anemia, hypoglycemia and elevated CA 19 -9 suggest possible malignancy. No recent mammogram. Consult oncology. Will get brain MRI, lumbar puncture and neurology consult. EKG shows prolonged QTc, ?multifocal atrial tachycardia vs afib - needs telemetry and/or prolonged cardiac monitoring. Get ECHO and consult cardiology. Add lisinopril 10 mg po bid. 2. Hypoalbuminemia - Possibly due to combined effects of malnutrition and inflammation associated with comorbid chronic conditions. Will ensure adequate dietary protein intake and also consult electronic scale tester. 3. Tobacco Use We will provide patient all the necessary assistance to facilitate smoking cessation and prescribe Nicotine patch. 4. Alcohol abuse - Implement [facility] alcohol withdrawal protocol, fall and aspiration precautions. Treat with thiamine and folic acid and monitor electrolytes (Ca,Mg,K,P). 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 5. Macrocytosis and Anemia - Macrocytosis may be due to acute effects of alcohol. Do basic anemia work up including serial stool guaiacs, Vit B12, folate levels, reticulocyte count and iron studies. Consult GI. 6. DVT prophylaxis - Lovenox 40 mg SQ q 24 hours. 7. Advance directives - Full code
--- NOTE | 2018-04-09 00:24 | HP ---
CHIEF COMPLAINT: Syncope/Fall PCP: Dr. Nancy Baer HISTORY OF PRESENT ILLNESS: 62 yo female with PMH HTN, peripheral neuropathy, alcohol abuse admitted following an episode of syncope with LOC. She states this has not happened before but she does often have some difficulty upon standing, though she usually ambulates well with her walker. She states she has not had any episodes prior to this one, however she is a somewhat poor historian. She was recently admitted for weakness and peripheral neuropathy which has improved but not resolved. She states initially that she has not followed up with anyone or seen any physicians since the admission, though she later stated she saw her primary 4 days ago and is scheduled to see her again in 3 days. She is unable to say whether she hit her head during the syncopal episode but did lose consciousness she thinks for a few seconds. She currently denies any headache, dizziness, blurred vision, chest pain, palpitations, n/v/d. 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 She states she has been doing better emotionally and is eating better including "steaks and chicken" and that her weight is starting to improve. ER course was notable for: (1) Head CT: negative for acute bleed or fracture (2) Tylenol, 500 cc NS (3) EKG possible supraventricular tachycardia vs paroxysmal a-fib, QTc 506 then 575, Mag level pending, 2 gm Mag IV given Recent Travel: none PAST MEDICAL HISTORY: HTN, peripheral neuropathy, alcohol abuse PAST SURGICAL HISTORY: Denies any major surgeries in the past Social History: Smoking: Daily smoker, trying to quit, on Chantix and nicoderm patch Alcohol: Daily alcohol use, last drink a few hours prior to admission Drugs: Denies Family History: Allergies No Known Allergies Allergy (Verified 04/08/18 19:10) HOME MEDICATIONS: Home Medications Medication Instructions Recorded Amlodipine Besylate [Norvasc -] 5 mg PO DAILY #30 tablet 03/21/18 Folic Acid - 1 mg PO DAILY #30 tablet 03/21/18 Gabapentin [Neurontin -] 100 mg PO BID #60 capsule 03/21/18 Nicotine Patch [Nicoderm Patch -] 1 mg TD DAILY #42 patch 03/21/18 Nicotine Patch [Nicoderm Patch -] 1 patch TD DAILY #14 patch 03/21/18 Nicotine Patch [Nicoderm Patch -] 1 patch TD DAILY #14 patch 03/21/18 Thiamine HCl [Vitamin B1 -] 100 mg PO BID #60 tablet 03/21/18 REVIEW OF SYSTEMS CONSTITUTIONAL: Absent: fever, chills, diaphoresis, generalized weakness, malaise, loss of appetite, weight change HEENT: Absent: rhinorrhea, nasal congestion, throat pain, throat swelling, difficulty swallowing, mouth swelling, ear pain, eye pain, visual changes CARDIOVASCULAR: syncope Absent: chest pain, , palpitations, irregular heart rate, lightheadedness, peripheral edema RESPIRATORY: Absent: cough, shortness of breath, dyspnea with exertion, orthopnea, wheezing, stridor, hemoptysis GASTROINTESTINAL: Absent: abdominal pain, abdominal distension, nausea, vomiting, diarrhea, constipation, melena, hematochezia GENITOURINARY: Absent: dysuria, frequency, urgency, hesitancy, hematuria, flank pain, genital pain MUSCULOSKELETAL: Absent: myalgia, arthralgia, joint swelling, back pain, neck pain SKIN: Absent: rash, itching, pallor HEMATOLOGIC/IMMUNOLOGIC: Absent: easy bleeding, easy bruising, lymphadenopathy, frequent infections ENDOCRINE: Absent: unexplained weight gain, unexplained weight loss, heat intolerance, cold intolerance NEUROLOGIC: Absent: headache, focal weakness or paresthesias, dizziness, unsteady gait, seizure, mental status changes, bladder or bowel incontinence PSYCHIATRIC: Absent: anxiety, depression, suicidal or homicidal ideation, hallucinations. PHYSICAL EXAMINATION Vital Signs - 24 hr 04/08/18 04/08/18 04/08/18 19:10 19:44 23:49 Temperature 97.1 F L Pulse Rate 78 Pulse Rate [ 84 Sitting] Pulse Rate [ 89 Standing] Pulse Rate [ 77 Supine] Respiratory 16 Rate Blood Pressure 156/86 Blood Pressure 145/80 [Sitting] Blood Pressure 115/76 [Standing] Blood Pressure 145/76 [Supine] O2 Sat by Pulse 97 97 Oximetry (%) GENERAL: A&O, no acute distress HEAD: Normocephalic, atraumatic. EYES: PERRL, no scleral icterus EARS, NOSE, THROAT: oropharynx clear without exudates. Moist mucous membranes. NECK: supple without lymphadenopathy LUNGS: CTA b/l, no crackles or wheezes HEART: Regular rate, irregular rhythm, normal S1 and S2 without murmur ABDOMEN: Soft, nontender to palpation, normoactive bowel sounds MUSCULOSKELETAL: No bony deformities or tenderness. EXTREMITIES: 2+ pulses, warm, well-perfused. No peripheral edema. NEUROLOGICAL: Cranial nerves II-XII grossly intact. Normal speech. Laboratory Results - last 24 hr 04/08/18 04/08/18 04/08/18 20:30 20:30 20:30 WBC 6.7 RBC 2.69 L Hgb 9.2 L Hct 25.9 L MCV 96.3 H MCH 34.2 H MCHC 35.5 RDW 16.1 H Plt Count 431 D MPV 7.1 L D Sodium 140 Potassium 4.0 Chloride 104 Carbon Dioxide 22 Anion Gap 13 BUN 7 Creatinine 0.5 L Creat Clearance w eGFR > 60 POC Glucometer Random Glucose 50 L Calcium 8.9 Total Bilirubin 0.8 AST 30 ALT 27 Alkaline Phosphatase 139 H Creatine Kinase 60 Troponin I 0.03 Total Protein 6.2 L Albumin 2.8 L Urine Color Urine Appearance Urine pH Ur Specific [place] Urine Protein Urine Glucose (UA) Urine Ketones Urine Blood Urine Nitrite Urine Bilirubin Urine Urobilinogen Ur Leukocyte Esterase Alcohol, Quantitative < 3.0 04/08/18 04/08/18 21:00 23:16 WBC RBC Hgb Hct MCV MCH MCHC RDW Plt Count MPV Sodium Potassium Chloride Carbon Dioxide Anion Gap BUN Creatinine Creat Clearance w eGFR POC Glucometer 99.98903 Random Glucose Calcium Total Bilirubin AST ALT Alkaline Phosphatase Creatine Kinase Troponin I Total Protein Albumin Urine Color Yellow Urine Appearance Clear Urine pH 5.0 Ur Specific [place] 1.011 Urine Protein Negative Urine Glucose (UA) Negative Urine Ketones Trace H Urine Blood Negative Urine Nitrite Negative Urine Bilirubin Negative Urine Urobilinogen 2.0 H Ur Leukocyte Esterase Negative Alcohol, Quantitative ASSESSMENT/PLAN: 62 yo female with PMH HTN, peripheral neuropathy, alcohol abuse admitted following an episode of syncope with LOC. Syncopal Episode -Pt still with mild elevation of b.p in supine and seated positions 145/80, though orthostatic b.p completed and pressure 115/76 upon standing -Counseled pt about fall precautions and standing up very slowly with assistance for now -Pt does not appear volume depleted clinically -Syncope couldve been secondary to orthostasis vs worsening of undiagnosed neurological condition vs alcohol use -Brain MRI ordered Continued Peripheral Neuropathy/Unsteady gait -Consider neurology evaluation and further workup as pt did not follow up as outpatient -Continue home Gabapentin 100 mg PO BID -Brain MRI as above -Would consider spinal tap for further evaluation/rule out of demyelinating disease Abnormal ECG with Arrythmia and Prolonged QTc -Possible Multifocal atrial tachycardia vs paroxysmal a-fib noted on 2 EKGs from ED on this admission -Pt denies any cardiac symptoms or symptoms of any kind at this time -Will place on telemetry monitoring for now -Consider cardiology evaluation for further workup and recommendations -QTc noted 506 and then 575 on repeat -Mag level pending, 2 gm IV Mag being given HTN -Pt on Norvasc 5 mg daily which she says was started on recent admission -Will continue Norvasc 5 mg PO Daily for now Counseled pt about fall precautions and standing up very slowly with assistance for now Anemia -Pt stable from prior admission -Could likely benefit from GI workup and colonoscopy, though recent stool occult negative -Anemia workup on recent admission with discharge on Folic acid and Vitamin B1 Alcohol Abuse -Monitor for signs of withdrawal -CIWA currently 2 for mild tremors -Initiate alcohol withdrawal protocol as needed but will hold off on librium/ ativan for now -3 beers consumed on day of ED presentation, however Alcohol level negative DVT Prophylaxis -Lovenox 40 mg SQ Daily FEN -Fluids: None -Electrolytes: No electrolyte abnormalities, BMP in AM -Nutrition: Na Controlled Diet Disposition Telemetry Visit type - Emergency Visit Emergency Visit: Yes ED Registration Date: 04/08/18 Care time: The patient presented to the Emergency Department on the above date and was hospitalized for further evaluation of their emergent condition. - New Patient This patient is new to me today: Yes Date on this admission: 04/09/18 - Critical Care Critical Care patient: No
[2018-04-09] MEDS ORDERED: GABAPENTIN 100 MG CAPSULE (FP) ONE (01:04)
[2018-04-09] MEDS: GABAPENTIN 100 MG CAPSULE (FP) PO SCH ×3 (01:20→21:28)
[2018-04-09 02:33] VITALS: BMI 20.1
[2018-04-09 06:36] LABS: BASO % 0.3 % (0-2.0); EOS % 0.6 % (0-4.5); HEMATOCRIT 24.3 % (32.4-45.2); HEMOGLOBIN 7.9 GM/dL (10.7-15.3); MCH 31.7 pg (25.7-33.7); MCHC 32.3 g/dl (32.0-36.0); MEAN PLT VOLUME 7.3 fl (7.5-11.1); MONO % 11.9 % (3.8-10.2); NEUT % 66.2 % (42.8-82.8); PLATELET COUNT 353 K/MM3 (134-434); RBC 2.48 M/mm3 (3.60-5.2); RDW 15.8 % (11.6-15.6); WHITE BLOOD COUNT 7.7 K/mm3 (4.0-10.0)
[2018-04-09] MEDS ORDERED: DEXTROSE 5%-0.45% SALINE 1,000 ML IV SCH (08:15)
[2018-04-09 08:20] LABS: ANION GAP 10 MMOL/L (8-16); BLOOD UREA NITROGEN 29 mg/dL (7-18); CALCIUM 7.7 mg/dL (8.5-10.1); CHLORIDE 111 mmol/L (98-107); CO2 24 mmol/L (21-32); CREATININE 1.8 mg/dL (0.55-1.3); GLUCOSE,RANDOM 147 mg/dL (74-106); MAGNESIUM 1.7 mg/dL (1.8-2.4); POTASSIUM 4.6 mmol/L (3.5-5.1); SODIUM 145 mmol/L (136-145)
[2018-04-09 08:21] LABS: ALBUMIN 1.7 g/dl (3.4-5.0); ALK PHOS 136 U/L (45-117); BILIRUBIN,TOTAL 0.3 mg/dL (0.2-1); SGOT/AST 15 U/L (15-37); SGPT/ALT < 6 U/L (13-61)
[2018-04-09] MEDS ORDERED: SODIUM CHLORIDE 1,000 ML IV STA (08:57)
[2018-04-09] MEDS ORDERED: MAGNESIUM SULF 50% (8.12 MEQ/2 ML-1 GM VIAL) IVPB ONE (09:00)
[2018-04-09 09:01] LABS: HEMOGLOBIN 8.5 GM/dL (10.7-15.3); MCH 32.3 pg (25.7-33.7); MCHC 32.6 g/dl (32.0-36.0); MEAN CELL VOLUME 98.8 fl (80-96); MEAN PLT VOLUME 6.8 fl (7.5-11.1); PLATELET COUNT 385 K/MM3 (134-434); RBC 2.63 M/mm3 (3.60-5.2); RDW 16.2 % (11.6-15.6); WHITE BLOOD COUNT 7.6 K/mm3 (4.0-10.0)
[2018-04-09 09:22] LABS: INR 0.89 (0.83-1.09); PROTHROMBIN TIME (PATIENT) 10.5 SEC (9.7-13.0)
[2018-04-09] MEDS ORDERED: ENOXAPARIN NA (PORCINE) 40 MG/0.4 ML DISP.SYRIN SQ SCH (10:00)
[2018-04-09] MEDS ORDERED: amLODIPine BESYLATE 5 MG TABLET (FP) PO SCH (10:00)
[2018-04-09] MEDS: THIAMINE HCL 100 MG TABLET (FP) PO SCH ×2 (10:36→21:28)
[2018-04-09] MEDS: FOLIC ACID 1 MG TABLET (FP) PO SCH (10:36)
[2018-04-09] MEDS: PANTOPRAZOLE SODIUM 40 MG VIAL IVPUSH SCH ×2 (10:37→21:28)
[2018-04-09] MEDS: DEXTROSE 5%-0.45% SALINE 1,000 ML IV SCH (10:37)
[2018-04-09] MEDS: NICOTINE 7 MG/24 HOURS TOPICAL PATCH TD SCH (10:38)
--- NOTE | 2018-04-09 11:27 | PN ---
Progress Note, Physician History of Present Illness: 62-year-old right-handed female patient with history of Anemia EtOH abuse Osteoarthritis Presented with a syncopal episode with no seizure activity and fall. Patient was at the hospital few weeks ago had a full neurological workup including neuropathy panel. Patient did not have any tongue biting urinary incontinence mild postictal confusion - Current Medication List Current Medications: Active Medications Amlodipine Besylate (Norvasc -) 5 mg PO DAILY [facility] Last Admin: 04/09/18 10:36 Dose: 5 mg Folic Acid (Folic Acid -) 1 mg PO DAILY [facility] Last Admin: 04/09/18 10:36 Dose: 1 mg Gabapentin (Neurontin -) 100 mg PO BID [facility] Last Admin: 04/09/18 10:37 Dose: 100 mg Dextrose/Sodium Chloride (D5-1/2ns -) 1,000 mls @ 100 mls/hr IV ASDIR [facility] Last Admin: 04/09/18 10:37 Dose: 100 mls/hr Nicotine (Nicoderm Patch -) 7 mg TD DAILY [facility] Last Admin: 04/09/18 10:38 Dose: 7 mg Pantoprazole Sodium (Protonix Iv) 40 mg IVPUSH BID [facility] Last Admin: 04/09/18 10:37 Dose: 40 mg Thiamine HCl (Vitamin B1 -) 100 mg PO BID [facility] Last Admin: 04/09/18 10:36 Dose: 100 mg - Objective Vital Signs: Vital Signs Temperature 98.2 F 04/09/18 09:14 Pulse Rate 89 04/09/18 09:14 Respiratory Rate 18 04/09/18 09:14 Blood Pressure 111/68 04/09/18 09:14 O2 Sat by Pulse Oximetry (%) 99 04/09/18 09:00 Constitutional: Yes: Well Nourished Eyes: Yes: WNL Neurological: Yes: Alert, Oriented Labs: CBC, BMP 04/09/18 08:55 04/09/18 05:30 INR, PTT INR 0.89 (0.83-1.09) 04/09/18 08:55 - ....Imaging Cat Scan: Image Reviewed Problem List - Problems (1) Syncope Assessment/Plan: check orthostasis every shift Check the old record. Seizure precautions Trial of Neurontin 300 mg by mouth daily at bedtime Follow-up Holter monitor Code(s): R55 - SYNCOPE AND COLLAPSE Qualifiers: Syncope type: unspecified Qualified Code(s): R55 - Syncope and collapse (2) Neuropathy Assessment/Plan: B12 level tthiamine 100 mg twice daily DT prophylaxis Code(s): G62.9 - POLYNEUROPATHY, UNSPECIFIED
--- NOTE | 2018-04-09 12:29 | EKG ---
Test Reason : Blood Pressure : / mmHG Vent. Rate : 106 BPM Atrial Rate : 102 BPM P-R Int : 000 ms QRS Dur : 096 ms QT Int : 352 ms P-R-T Axes : 000 076 066 degrees QTc Int : 467 ms ATRIAL FIBRILLATION WITH RAPID VENTRICULAR RESPONSE RSR' OR QR PATTERN IN V1 SUGGESTS RIGHT VENTRICULAR CONDUCTION DELAY T WAVE ABNORMALITY, CONSIDER ANTERIOR ISCHEMIA ABNORMAL ECG WHEN COMPARED WITH ECG OF 18-MAR-2018 21:26, ATRIAL FIBRILLATION HAS REPLACED SINUS RHYTHM Confirmed by SAMRA WADE, VIOLA ([id number]) on 04/09/2018 12:29:02 PM Referred By: Confirmed By:VIOLA CABRALES MD
--- NOTE | 2018-04-09 14:08 | ECHO ---
Name: TOÑO ROBLES Exam:Adult Echocardiogram Study Date: 04/09/2018 09:48 AM Age: 62 yrs Reason For Study: SYNCOPE Height: 65 in Weight: 110 lb BSA: 1.5 m2 MMode/2D Measurements & Calculations IVSd: 0.76 cm EDV(Teich): 83.3 ml LVIDd: 4.3 cm ESV(Teich): 39.4 ml LVIDs: 3.1 cm LVPWd: 0.73 cm Doppler Measurements & Calculations MV E max ken: 59.2 cm/sec MR max ken: 422.0 cm/sec MV A max ken: 71.6 cm/sec MR max P.2 mmHg MV E/A: 0.83 MV dec time: 0.19 sec TR max ken: 238.4 cm/sec Med Peak E' Ken: 9.4 cm/sec TR max P.8 mmHg Med E/e': 6.3 Lat Peak E' Ken: 13.5 cm/sec Lat E/e': 4.4 Procedure The study was technically difficult with many images being suboptimal in quality. Left Ventricle The left ventricle is grossly normal size. The left ventricle is not well visualized. The left ventri cular ejection fraction is normal. E/A reversal consistent with but not diagnostic of poor LV compliance. R egional wall motion abnormalities cannot be excluded due to limited visualization. Right Ventricle The right ventricle is not well visualized. Atria The left atrium is not well visualized. Right atrium not well visualized. Mitral Valve The mitral valve is not well visualized. There is no mitral valve stenosis. There is trace to mild mi tral regurgitation. Tricuspid Valve The tricuspid valve is not well visualized. There is no tricuspid stenosis. There is Trace to mild tr icuspid regurgitation. Aortic Valve The aortic valve is not well visualized. No hemodynamically significant valvular aortic stenosis. No aortic regurgitation is present. Pulmonic Valve The pulmonic valve is not well visualized. Great Vessels The aortic root is not well visualized. Pericardium/Pleura There is no pericardial effusion. Interpretation Summary The study was technically difficult with many images being suboptimal in quality. The left ventricle is grossly normal size. The left ventricle is not well visualized. The left ventricular ejection fraction is normal. Regional wall motion abnormalities cannot be excluded due to limited visualization. E/A reversal consistent with but not diagnostic of poor LV compliance The left atrium is not well visualized. Right atrium not well visualized. The mitral valve is not well visualized. There is trace to mild mitral regurgitation. The tricuspid valve is not well visualized. There is Trace to mild tricuspid regurgitation. MD Fadi Ashford 04/09/2018 02:07 PM
[2018-04-09 14:14] LABS: HEMATOCRIT 22.1 % (32.4-45.2); HEMOGLOBIN 7.7 GM/dL (10.7-15.3); MCH 33.5 pg (25.7-33.7); MCHC 34.8 g/dl (32.0-36.0); MEAN CELL VOLUME 96.2 fl (80-96); MEAN PLT VOLUME 6.9 fl (7.5-11.1); PLATELET COUNT 356 K/MM3 (134-434); WHITE BLOOD COUNT 6.4 K/mm3 (4.0-10.0)
[2018-04-09 15:30] LABS: INR 0.89 (0.83-1.09); PROTHROMBIN TIME (PATIENT) 10.5 SEC (9.7-13.0)
[2018-04-09 15:32] LABS: ACTIVATED PTT 29.7 SECONDS (25.2-36.5)
--- NOTE | 2018-04-09 15:39 | CON.CARD ---
Consult Consult Specialty:: Cardiology Referred by:: Hospitalist Reason for Consultation:: arrhythmia, syncope - History of Present Illness Chief Complaint: syncope, dizziness History of Present Illness: 62 year old woman pmh HTN, peripheral neuropathy, etoh abuse admitted with syncope. Pt noted to have an irregular rhythm on ekg and tele and noted to have relative orthostatic hypotension and evidence of intravascular depletion. Pt was seen and examined today in [facility], with her sons at bedside. Pt states that her symptoms always occur when standing up from a seated or lying position. notes that she get dizzy frequently when getting up quickly. Denies any chest pain, sob, palpitations, pnd, orthopnea or LE edema. - History Source History Provided By: Patient, Family Member Limitations to Obtaining History: Poor Historian - Past Medical History Cardio/Vascular: Yes: HTN ...: No Psych: Yes: Addictions - Alcohol/Substance Use Hx Alcohol Use: Yes - Smoking History Smoking history: Current every day smoker Have you smoked in the past 12 months: No Aproximately how many cigarettes per day: 10 - Social History Usual Living Arrangement: With Spouse (in walk-up apartment with 7 steps to enter, previously Independent in ADLs without AD) ADL: Independent History of Recent Travel: No Home Medications - Allergies Allergies/Adverse Reactions: Allergies Allergy/AdvReac Type Severity Reaction Status Date / Time No Known Allergies Allergy Verified 04/08/18 19:10 - Home Medications Home Medications: Ambulatory Orders Amlodipine Besylate [Norvasc -] 5 mg PO DAILY #30 tablet 03/21/18 Folic Acid - 1 mg PO DAILY #30 tablet 03/21/18 Gabapentin [Neurontin -] 100 mg PO BID #60 capsule 03/21/18 Nicotine Patch [Nicoderm Patch -] 1 patch TD DAILY #14 patch 03/21/18 Nicotine Patch [Nicoderm Patch -] 1 patch TD DAILY #14 patch 03/21/18 Thiamine HCl [Vitamin B1 -] 100 mg PO BID #60 tablet 03/21/18 Gabapentin 300 mg PO DAILY 04/09/18 Gabapentin [Neurontin] 100 mg PO BID 04/09/18 Mv,Calcium,Min/Iron/Folic/Vitk [Multi For Her Tablet] 1 tab PO ONCE 04/09/18 Family Disease History - Family Disease History Family History: Denies Review of Systems - Review of Systems Constitutional: denies: No Symptoms, Chills, Diaphoresis, Fever, Lethargy, Loss of Appetite, Malaise, Night Sweats, Unintentional Wgt. Loss, Weakness, Other Eyes: denies: No Symptoms, Blind Spots, Blurred Vision, Double Vision, Eye Pain , Floaters, Photophobia, Recent Change in Vision, Other HENT: denies: No Symptoms, Difficult Swallowing, Ear Discharge, Ear Pain, Epistaxis, Gingival Bleeding, Hearing Loss, Mouth Swelling, Nasal Congestion, Ocular Prosthesis, Throat Pain, Toothache, Ringing in Ears, Other Neck: denies: No Symptoms, Decreased ROM, Lumps, Pain on Movement, Stiffness, Swollen Glands, Tenderness, Other Cardiovascular: denies: No Symptoms, Chest Pain, Edema, Palpitations, Shortness of Breath, Other Respiratory: denies: No Symptoms, Cough, Exercise Intolerance, Hemoptysis, Orthopnea, PND, Snoring, SOB, SOB on Exertion, Wheezing, Other Gastrointestinal: denies: No Symptoms, Abdominal Pain, Bloating, Constipation, Diarrhea, Dysphagia, Indigestion, Melena, Nausea, Rectal Bleeding, Vomiting, Vomiting Blood, Other Genitourinary: denies: No Symptoms, Burning, Discharge, Dysuria, Flank Pain, Frequency, Hematuria, Incontinence, Lesions, Menses, Pain, Testicular Mass, Testicular Pain, Testicular Swelling, Urgency, Vaginal Bleeding, Other Breasts: denies: No Symptoms Reported, See HPI, Breast Implants, Discharge from Nipple, Lumps, Pain, Skin Changes, Other Musculoskeletal: denies: No Symptoms, Back Pain, Crepitus, Decreased ROM, Extremity Pain, Joint Pain, Joint Swelling, Muscle Pain, Muscle Cramps, Muscle Weakness, Other Integumentary: denies: No Symptoms, Blister, Bruising, Change in Color, Eczema, Erythema, Incision, Lesions, Lump, Pallor, Pruritis, Rash, Wound, Other Neurological: reports: Dizziness, Syncope. denies: No Symptoms, Change in LOC, Change in Speech, Confusion, Headache, Incoordination, Numbness, Parasthesia, Pre-Existing Deficit, Seizure, Tremors, Unsteady Gait, Weakness, Other Endocrine: denies: No Symptoms, Excessive Sweating, Flushing, Increased Hunger, Increased Thirst, Intolerance to Cold, Intolerance to Heat, Unexplained Weight Gain, Unexplained Weight Loss, Other Hematology/Lymphatic: denies: No Symptoms, Easily Bruised, Excessive Bleeding, Swollen Glands, Other Psychiatric: denies: No Symptoms, Altered Sleep Pattern, Anxiety, Depression, Hallucinations, Panic, Paranoia, Suicidal, Other Vital Signs: Vital Signs Temperature 98.2 F 04/09/18 14:44 Pulse Rate 84 04/09/18 14:44 Respiratory Rate 23 H 04/09/18 14:44 Blood Pressure 134/74 04/09/18 14:44 O2 Sat by Pulse Oximetry (%) 99 04/09/18 09:00 Constitutional: Yes: No Distress, Calm Eyes: Yes: WNL, Conjunctiva Clear, EOM Intact HENT: Yes: WNL, Atraumatic, Normocephalic Neck: Yes: WNL, Supple, Trachea Midline Respiratory: Yes: WNL, Regular, CTA Bilaterally. No: Rales, Rhonchi, SOB, Wheezes Gastrointestinal: Yes: Normal Bowel Sounds, Soft. No: Distention, Tenderness Cardiovascular: Yes: Regular Rate and Rhythm. No: Bradycardia, Tachycardia, Pulse Irregular, Gallop, Rub, Varicosities JVD: No Carotid Bruit: No PMI: Non-Displaced Heart Sounds: Yes: S1, S2. No: Split S2, S3, S4, Clicks, Gallop, Rub, Bruit Murmur: No: Systolic Murmur, Diastolic Murmur Musculoskeletal: Yes: WNL Extremities: Yes: WNL Edema: No Peripheral Pulses WNL: Yes Peripheral Pulses: 2+ Left Doralis Pedis, 2+ Right Dorsalis Pedis Neurological: Yes: Alert, Oriented Psychiatric: Yes: Alert, Oriented - Other Data Labs, Other Data: CBC, BMP 04/09/18 13:48 04/09/18 05:30 INR, PTT INR 0.89 (0.83-1.09) 04/09/18 13:48 Troponin, BNP 04/08/18 20:30 Troponin I 0.03 Troponin, BNP 04/08/18 20:30 Troponin I 0.03 ekg-nsr, sinus arrhythmia, nsst Echo: Report Reviewed Imaging - Results Chest X-ray: Report Reviewed, Image Reviewed EKG: Report Reviewed, Image Reviewed Other: Report Reviewed, Image Reviewed (tele-nsr, sinus arrhythmia, frequent apcs, brief episodes of psvt) Assessment/Plan 62 year old woman pmh HTN, peripheral neuropathy, etoh abuse admitted with syncope. Pt noted to have an irregular rhythm on ekg and tele and noted to have relative orthostatic hypotension and evidence of intravascular depletion. Pt states that her symptoms always occur when standing up from a seated or lying position. notes that she get dizzy frequently when getting up quickly. Denies any chest pain, sob, palpitations, pnd, orthopnea or LE edema. Arrhythmia- -review of tele appear most c/w sinus rhythm with sinus arrhythmia, frequent apcs and brief self limited episodes of PSVT -not clearly MAT or ectopic atrial rhythm -no afib/aflutter -this would not account for her presenting symptoms of syncope and dizziness -would [facility] outpatient event monitoring to evaluate further for arrhythmia -HR is controlled, does not require AV jazlyn blockers -ensure electrolytes remain wnl -ok to dc tele at this time Syncope- -most likely secondary to orthostatic hypotension in setting of chronic etoh abuse, poor nutrition, poor water intake and intravascular depletion -discussed with pt and her family importance of etoh cessation, adequate hydration and safety precautions of slow rise from a seated/lying position and to sit/lie down immediately if she feels lightheaded -echo 04/09/18 showed normal LV systolic function and only mild valvular abnl -cont IVF hydration and encourage po fluid intake -no further inpatient cardiac work up needed at this time [facility] outpatient fup for event monitor as above. Please call with any additional questions.
--- NOTE | 2018-04-09 15:45 | EKG ---
Test Reason : Blood Pressure : / mmHG Vent. Rate : 085 BPM Atrial Rate : 085 BPM P-R Int : 112 ms QRS Dur : 110 ms QT Int : 422 ms P-R-T Axes : 000 077 070 degrees QTc Int : 502 ms NORMAL SINUS RHYTHM INCOMPLETE RIGHT BUNDLE BRANCH BLOCK NONSPECIFIC T WAVE ABNORMALITY ABNORMAL ECG WHEN COMPARED WITH ECG OF 08-APR-2018 21:59, SINUS RHYTHM HAS REPLACED ATRIAL FIBRILLATION Confirmed by SAMRA WADE, VIOLA ([id number]) on 04/09/2018 3:45:09 PM Referred By: Confirmed By:VIOLA CABRALES MD
--- NOTE | 2018-04-09 17:15 | PN ---
Teaching Attending Note Name of Resident: Sonido Alarcon ATTENDING PHYSICIAN STATEMENT I saw and evaluated the patient. I reviewed the resident's note and discussed the case with the resident. I agree with the resident's findings and plan as documented with exceptions below. SUBJECTIVE: Patient seen and examined. Feels better, denies any chest pain, dizziness, nausea, vomiting, abdominal pain, dark or bloody stools. States tried to open refrigerator door to have her second beer when felt was about to pass out, next thing she calls is EMS flashing light into her eyes. Similar prior episode few years ago.Denies any chest pain, dizziness, palpitations or concerns otherwise. OBJECTIVE: Vital Signs Period Temp Pulse Resp BP Sys/Finley Pulse Ox Last 24 Hr 97.1 F-98.8 F 68-109 16-23 106-156/64-86 97-99 Intake & Output 04/06/18 04/07/18 04/08/18 04/09/18 23:59 23:59 23:59 23:59 Intake Total 1810 Output Total 500 Balance 1310 Weight 150 lb 110 lb 4 oz General: thin female in bed, in no acute distress Neck; soft, supple, no JVD Chest: CTAB, no rales or wheezing Abdomen:Soft, NT, nD Extremities: no edema, no tremors Neuro: AAOX3, power 5/5 sensation intact and symmetric to light touch, no pronator drift Home Medications Medication Instructions Recorded Amlodipine Besylate [Norvasc -] 5 mg PO DAILY #30 tablet 03/21/18 Folic Acid - 1 mg PO DAILY #30 tablet 03/21/18 Gabapentin [Neurontin -] 100 mg PO BID #60 capsule 03/21/18 Nicotine Patch [Nicoderm Patch -] 1 patch TD DAILY #14 patch 03/21/18 Nicotine Patch [Nicoderm Patch -] 1 patch TD DAILY #14 patch 03/21/18 Thiamine HCl [Vitamin B1 -] 100 mg PO BID #60 tablet 03/21/18 Gabapentin 300 mg PO DAILY 04/09/18 Gabapentin [Neurontin] 100 mg PO BID 04/09/18 Mv,Calcium,Min/Iron/Folic/Vitk 1 tab PO ONCE 04/09/18 [Multi For Her Tablet] Active Medications Amlodipine Besylate (Norvasc -) 5 mg PO DAILY [facility] Last Admin: 04/09/18 10:36 Dose: 5 mg Folic Acid (Folic Acid -) 1 mg PO DAILY [facility] Last Admin: 04/09/18 10:36 Dose: 1 mg Gabapentin (Neurontin -) 100 mg PO BID [facility] Last Admin: 04/09/18 10:37 Dose: 100 mg Dextrose/Sodium Chloride (D5-1/2ns -) 1,000 mls @ 100 mls/hr IV ASDIR [facility] Last Admin: 04/09/18 10:37 Dose: 100 mls/hr Nicotine (Nicoderm Patch -) 7 mg TD DAILY [facility] Last Admin: 04/09/18 10:38 Dose: 7 mg Pantoprazole Sodium (Protonix Iv) 40 mg IVPUSH BID [facility] Last Admin: 04/09/18 10:37 Dose: 40 mg Thiamine HCl (Vitamin B1 -) 100 mg PO BID [facility] Last Admin: 04/09/18 10:36 Dose: 100 mg Laboratory Results - last 24 hr 04/08/18 04/08/18 04/08/18 20:30 20:30 20:30 WBC 6.7 RBC 2.69 L Hgb 9.2 L Hct 25.9 L MCV 96.3 H MCH 34.2 H MCHC 35.5 RDW 16.1 H Plt Count 431 D MPV 7.1 L D Absolute Neuts (auto) Neutrophils % Lymphocytes % Monocytes % Eosinophils % Basophils % Nucleated RBC % Retic Count PT with INR INR PTT (Actin FS) Sodium 140 Potassium 4.0 Chloride 104 Carbon Dioxide 22 Anion Gap 13 BUN 7 Creatinine 0.5 L Creat Clearance w eGFR > 60 POC Glucometer Random Glucose 50 L Hemoglobin A1c % Calcium 8.9 Phosphorus Magnesium Ferritin Total Bilirubin 0.8 AST 30 ALT 27 Alkaline Phosphatase 139 H Creatine Kinase 60 Troponin I 0.03 Total Protein 6.2 L Albumin 2.8 L Vitamin B12 Serum Folate Urine Color Urine Appearance Urine pH Ur Specific [place] Urine Protein Urine Glucose (UA) Urine Ketones Urine Blood Urine Nitrite Urine Bilirubin Urine Urobilinogen Ur Leukocyte Esterase Stool Occult Blood Alcohol, Quantitative < 3.0 Blood Type Antibody Screen 04/08/18 04/08/18 04/08/18 20:30 21:00 23:16 WBC RBC Hgb Hct MCV MCH MCHC RDW Plt Count MPV Absolute Neuts (auto) Neutrophils % Lymphocytes % Monocytes % Eosinophils % Basophils % Nucleated RBC % Retic Count PT with INR INR PTT (Actin FS) Sodium Potassium Chloride Carbon Dioxide Anion Gap BUN Creatinine Creat Clearance w eGFR POC Glucometer 99.92474 Random Glucose Hemoglobin A1c % Calcium Phosphorus Magnesium 2.3 Ferritin Total Bilirubin AST ALT Alkaline Phosphatase Creatine Kinase Troponin I Total Protein Albumin Vitamin B12 Serum Folate Urine Color Yellow Urine Appearance Clear Urine pH 5.0 Ur Specific [place] 1.011 Urine Protein Negative Urine Glucose (UA) Negative Urine Ketones Trace H Urine Blood Negative Urine Nitrite Negative Urine Bilirubin Negative Urine Urobilinogen 2.0 H Ur Leukocyte Esterase Negative Stool Occult Blood Alcohol, Quantitative Blood Type Antibody Screen 04/09/18 04/09/18 04/09/18 05:30 05:30 05:30 WBC 7.7 RBC 2.48 L Hgb 7.9 L Hct 24.3 L MCV 98.0 H MCH 31.7 MCHC 32.3 RDW 15.8 H Plt Count 353 MPV 7.3 L Absolute Neuts (auto) 5.1 Neutrophils % 66.2 Lymphocytes % 21.0 D Monocytes % 11.9 H D Eosinophils % 0.6 Basophils % 0.3 Nucleated RBC % 0 Retic Count PT with INR INR PTT (Actin FS) Sodium 145 Potassium 4.6 Chloride 111 H Carbon Dioxide 24 Anion Gap 10 BUN 29 H Creatinine 1.8 H Creat Clearance w eGFR 28.60 POC Glucometer Random Glucose 147 H Hemoglobin A1c % < 5.0 Calcium 7.7 L Phosphorus 4.0 Magnesium 1.7 L Ferritin 1258.3 H Total Bilirubin 0.3 AST 15 ALT < 6 L Alkaline Phosphatase 136 H Creatine Kinase Troponin I Total Protein 6.0 L Albumin 1.7 L Vitamin B12 474 Serum Folate 6 Urine Color Urine Appearance Urine pH Ur Specific [place] Urine Protein Urine Glucose (UA) Urine Ketones Urine Blood Urine Nitrite Urine Bilirubin Urine Urobilinogen Ur Leukocyte Esterase Stool Occult Blood Alcohol, Quantitative Blood Type Antibody Screen 04/09/18 04/09/18 04/09/18 05:51 08:55 08:55 WBC 7.6 RBC 2.63 L Hgb 8.5 L Hct 26.0 L MCV 98.8 H MCH 32.3 MCHC 32.6 RDW 16.2 H Plt Count 385 MPV 6.8 L Absolute Neuts (auto) Neutrophils % Lymphocytes % Monocytes % Eosinophils % Basophils % Nucleated RBC % Retic Count PT with INR 10.50 INR 0.89 PTT (Actin FS) 29.0 Sodium Potassium Chloride Carbon Dioxide Anion Gap BUN Creatinine Creat Clearance w eGFR POC Glucometer 80 Random Glucose Hemoglobin A1c % Calcium Phosphorus Magnesium Ferritin Total Bilirubin AST ALT Alkaline Phosphatase Creatine Kinase Troponin I Total Protein Albumin Vitamin B12 Serum Folate Urine Color Urine Appearance Urine pH Ur Specific [place] Urine Protein Urine Glucose (UA) Urine Ketones Urine Blood Urine Nitrite Urine Bilirubin Urine Urobilinogen Ur Leukocyte Esterase Stool Occult Blood Alcohol, Quantitative Blood Type Antibody Screen 04/09/18 04/09/18 04/09/18 08:55 10:35 12:06 WBC RBC Hgb Hct MCV MCH MCHC RDW Plt Count MPV Absolute Neuts (auto) Neutrophils % Lymphocytes % Monocytes % Eosinophils % Basophils % Nucleated RBC % Retic Count 1.98 H D PT with INR INR PTT (Actin FS) Sodium Potassium Chloride Carbon Dioxide Anion Gap BUN Creatinine Creat Clearance w eGFR POC Glucometer 157 Random Glucose Hemoglobin A1c % Calcium Phosphorus Magnesium Ferritin Total Bilirubin AST ALT Alkaline Phosphatase Creatine Kinase Troponin I Total Protein Albumin Vitamin B12 Serum Folate Urine Color Urine Appearance Urine pH Ur Specific [place] Urine Protein Urine Glucose (UA) Urine Ketones Urine Blood Urine Nitrite Urine Bilirubin Urine Urobilinogen Ur Leukocyte Esterase Stool Occult Blood Negative Alcohol, Quantitative Blood Type Antibody Screen 04/09/18 04/09/18 04/09/18 13:48 13:48 13:48 WBC 6.4 RBC 2.30 L Hgb 7.7 L Hct 22.1 L MCV 96.2 H MCH 33.5 MCHC 34.8 RDW 16.0 H Plt Count 356 MPV 6.9 L Absolute Neuts (auto) Neutrophils % Lymphocytes % Monocytes % Eosinophils % Basophils % Nucleated RBC % Retic Count PT with INR 10.50 INR 0.89 PTT (Actin FS) 29.7 Sodium Potassium Chloride Carbon Dioxide Anion Gap BUN Creatinine Creat Clearance w eGFR POC Glucometer Random Glucose Hemoglobin A1c % Calcium Phosphorus Magnesium Ferritin Total Bilirubin AST ALT Alkaline Phosphatase Creatine Kinase Troponin I Total Protein Albumin Vitamin B12 Serum Folate Urine Color Urine Appearance Urine pH Ur Specific [place] Urine Protein Urine Glucose (UA) Urine Ketones Urine Blood Urine Nitrite Urine Bilirubin Urine Urobilinogen Ur Leukocyte Esterase Stool Occult Blood Alcohol, Quantitative Blood Type O POSITIVE Antibody Screen Negative H 04/09/18 16:49 WBC RBC Hgb Hct MCV MCH MCHC RDW Plt Count MPV Absolute Neuts (auto) Neutrophils % Lymphocytes % Monocytes % Eosinophils % Basophils % Nucleated RBC % Retic Count PT with INR INR PTT (Actin FS) Sodium Potassium Chloride Carbon Dioxide Anion Gap BUN Creatinine Creat Clearance w eGFR POC Glucometer 117 Random Glucose Hemoglobin A1c % Calcium Phosphorus Magnesium Ferritin Total Bilirubin AST ALT Alkaline Phosphatase Creatine Kinase Troponin I Total Protein Albumin Vitamin B12 Serum Folate Urine Color Urine Appearance Urine pH Ur Specific [place] Urine Protein Urine Glucose (UA) Urine Ketones Urine Blood Urine Nitrite Urine Bilirubin Urine Urobilinogen Ur Leukocyte Esterase Stool Occult Blood Alcohol, Quantitative Blood Type Antibody Screen 2D echo results reviewed Brain MRI results reviewed ASSESSMENT AND PLAN: 62 yof with PMHx of HTN, peripheral neuropathy,ETOH abuse admitted with syncope. -Syncope, suspect orthostatic compounded by ETOH use/poor nutrition/Hypovolumia , low suspicion for GIbleed contributing to the same, less likely cardiac or neurological etiology -Tachycardia, Sinus arrhythmia with SVT vs MAT -ULICES, ?hypovolumia, r/o retention/GI bleed -Acute on chronic macrocytic anemia, suspect from chronic poor nutrition, with dilutional component, r/o GI Bleed given ETOH use -Peripheral neuropathy -ETOH abuse -HTN Plan: Telemetry reviewed, Cardiology input noted. 2D echo reviewed. Orthostasis resolved. Aggressive IVF. Monitor renal function Close h/h monitoring. GI consult, FOBT. Check iron panel/b12/folate/ Continue folate, thiamine, and monitor for withdrawal, detox consult accordingly. Low dose gabapentin at night. Hold Amlodipine for now. DVTPPX SCDs given anemia and ruling out GI bleed Will need PT eval and CM consult for d/c planning. Plan discussed with patient in detail, all questions answered.
--- NOTE | 2018-04-09 19:11 | CONS ---
DATE OF CONSULTATION: 04/09/2018 The patient is a 62-year-old female with a past medical history of alcohol abuse, hypertension and peripheral neuropathy who was admitted with syncope, apparently secondary to orthostatic hypotension with evidence of intravascular depletion, currently being evaluated by Cardiology. During the course, she was noted to have a one-unit drop in her hemoglobin. There was no sign of melena, hematochezia or overt GI blood loss. She denies any abdominal pain, nausea, vomiting or previous episodes of dark stool or hematemesis. She has never had an upper endoscopy or colonoscopy. She denies using NSAIDs for pain. She uses Tylenol instead. PAST MEDICAL AND SURGICAL HISTORY: These are as listed in the HPI. SOCIAL HISTORY: She smokes daily and drinks daily. She does not use any other drugs. She lives alone at home. FAMILY HISTORY: No history of GI or gynecologic malignancy. ALLERGIES: NO KNOWN DRUG ALLERGIES. HOME MEDICATIONS: Amlodipine, folic acid, gabapentin, nicotine patch, thiamine and calcium. PHYSICAL EXAMINATION: Vital Signs: Temperature 98, pulse 84, blood pressure 134/74, respiratory rate 12. General: The patient is in no acute distress. HEENT: Anicteric sclerae. Cardiovascular: S1, S2. Regular rate and rhythm. Lungs: Bilaterally clear to auscultation. Abdomen: Soft and nontender. Extremities: No edema. LABS: White blood cell count was 6.4, hemoglobin on admission 9.2, currently 7.7. Over the past two days it has ranged between 7.9 and 8.5. MCV 96. Platelet count 356, INR 0.89. Chemistries: Sodium 145, potassium 4.6, BUN 29, creatinine 1.8, glucose 147, ferritin 1258. Urine with 2+ urobilinogen. Stool for occult blood is negative x1. During the course, the patient has not had any abdominal imaging. She did have a brain MRI which revealed no evidence of abnormal restricted diffusion in the brain to suggest any infarctions loss of volume of the brain parenchyma with involutional changes. No hydrocephalus. She had an echocardiogram which was a difficult study. The ventricle was grossly normal. Ejection fraction is normal. There is trace mild mitral regurgitation and mild tricuspid regurgitation. IMPRESSION: Normocytic anemia. Fecal occult blood testing is negative x1. There is no sign of an overt GI bleed at this time. However, gastrointestinal blood loss cannot be excluded. RECOMMENDATIONS: 1. Complete the cardiac evaluation. 2. Diet as tolerated. 3. Trend her hemoglobin daily while she is hospitalized. 4. She would benefit from a diagnostic upper endoscopy and colonoscopy, considering she has never been screened for colorectal cancer. This can be done as an outpatient. If she were to remain hospitalized, we can arrange for these procedures to be done while she is here in the hospital. 5. We would also recommend alcohol counseling, avoidance of NSAIDs and starting her on Protonix 40 mg p.o. daily. DO DIEGO DALEY/[id number]
--- NOTE | 2018-04-09 19:48 | PN ---
Physical Exam: SUBJECTIVE: Patient seen and examined at bedside. Sitting eating breakfast. Sons at bedside. No complaints. OBJECTIVE: Vital Signs Period Temp Pulse Resp BP Sys/Finley Pulse Ox Last 24 Hr 97.5 F-98.8 F 68-109 18-23 106-145/64-92 99-99 GENERAL: NAD HEAD: NC/AT EYES: EOMI Conjunctiva clear ENT: MMM NECK: supple. LUNGS: DEC BS at bases HEART: RRR No MRG [id number] ABDOMEN: Soft NDNT EXTREMITIES: No CCE NEUROLOGICAL: Gait Not observed. Strength 5/5 lower extremities. 5/5 upper extremities. SILT. PSYCH: Normal mood, normal affect. SKIN:no rashes or lesions appreciated Laboratory Results - last 24 hr 04/08/18 04/08/18 04/08/18 20:30 20:30 20:30 WBC 6.7 RBC 2.69 L Hgb 9.2 L Hct 25.9 L MCV 96.3 H MCH 34.2 H MCHC 35.5 RDW 16.1 H Plt Count 431 D MPV 7.1 L D Absolute Neuts (auto) Neutrophils % Lymphocytes % Monocytes % Eosinophils % Basophils % Nucleated RBC % Retic Count PT with INR INR PTT (Actin FS) Sodium 140 Potassium 4.0 Chloride 104 Carbon Dioxide 22 Anion Gap 13 BUN 7 Creatinine 0.5 L Creat Clearance w eGFR > 60 POC Glucometer Random Glucose 50 L Hemoglobin A1c % Calcium 8.9 Phosphorus Magnesium Ferritin Total Bilirubin 0.8 AST 30 ALT 27 Alkaline Phosphatase 139 H Creatine Kinase 60 Troponin I 0.03 Total Protein 6.2 L Albumin 2.8 L Vitamin B12 Serum Folate Urine Color Urine Appearance Urine pH Ur Specific [place] Urine Protein Urine Glucose (UA) Urine Ketones Urine Blood Urine Nitrite Urine Bilirubin Urine Urobilinogen Ur Leukocyte Esterase Stool Occult Blood Alcohol, Quantitative < 3.0 Blood Type Antibody Screen 04/08/18 04/08/18 04/08/18 20:30 21:00 23:16 WBC RBC Hgb Hct MCV MCH MCHC RDW Plt Count MPV Absolute Neuts (auto) Neutrophils % Lymphocytes % Monocytes % Eosinophils % Basophils % Nucleated RBC % Retic Count PT with INR INR PTT (Actin FS) Sodium Potassium Chloride Carbon Dioxide Anion Gap BUN Creatinine Creat Clearance w eGFR POC Glucometer 99.58783 Random Glucose Hemoglobin A1c % Calcium Phosphorus Magnesium 2.3 Ferritin Total Bilirubin AST ALT Alkaline Phosphatase Creatine Kinase Troponin I Total Protein Albumin Vitamin B12 Serum Folate Urine Color Yellow Urine Appearance Clear Urine pH 5.0 Ur Specific [place] 1.011 Urine Protein Negative Urine Glucose (UA) Negative Urine Ketones Trace H Urine Blood Negative Urine Nitrite Negative Urine Bilirubin Negative Urine Urobilinogen 2.0 H Ur Leukocyte Esterase Negative Stool Occult Blood Alcohol, Quantitative Blood Type Antibody Screen 04/09/18 04/09/18 04/09/18 05:30 05:30 05:30 WBC 7.7 RBC 2.48 L Hgb 7.9 L Hct 24.3 L MCV 98.0 H MCH 31.7 MCHC 32.3 RDW 15.8 H Plt Count 353 MPV 7.3 L Absolute Neuts (auto) 5.1 Neutrophils % 66.2 Lymphocytes % 21.0 D Monocytes % 11.9 H D Eosinophils % 0.6 Basophils % 0.3 Nucleated RBC % 0 Retic Count PT with INR INR PTT (Actin FS) Sodium 145 Potassium 4.6 Chloride 111 H Carbon Dioxide 24 Anion Gap 10 BUN 29 H Creatinine 1.8 H Creat Clearance w eGFR 28.60 POC Glucometer Random Glucose 147 H Hemoglobin A1c % < 5.0 Calcium 7.7 L Phosphorus 4.0 Magnesium 1.7 L Ferritin 1258.3 H Total Bilirubin 0.3 AST 15 ALT < 6 L Alkaline Phosphatase 136 H Creatine Kinase Troponin I Total Protein 6.0 L Albumin 1.7 L Vitamin B12 474 Serum Folate 6 Urine Color Urine Appearance Urine pH Ur Specific [place] Urine Protein Urine Glucose (UA) Urine Ketones Urine Blood Urine Nitrite Urine Bilirubin Urine Urobilinogen Ur Leukocyte Esterase Stool Occult Blood Alcohol, Quantitative Blood Type Antibody Screen 04/09/18 04/09/18 04/09/18 05:51 08:55 08:55 WBC 7.6 RBC 2.63 L Hgb 8.5 L Hct 26.0 L MCV 98.8 H MCH 32.3 MCHC 32.6 RDW 16.2 H Plt Count 385 MPV 6.8 L Absolute Neuts (auto) Neutrophils % Lymphocytes % Monocytes % Eosinophils % Basophils % Nucleated RBC % Retic Count PT with INR 10.50 INR 0.89 PTT (Actin FS) 29.0 Sodium Potassium Chloride Carbon Dioxide Anion Gap BUN Creatinine Creat Clearance w eGFR POC Glucometer 80 Random Glucose Hemoglobin A1c % Calcium Phosphorus Magnesium Ferritin Total Bilirubin AST ALT Alkaline Phosphatase Creatine Kinase Troponin I Total Protein Albumin Vitamin B12 Serum Folate Urine Color Urine Appearance Urine pH Ur Specific [place] Urine Protein Urine Glucose (UA) Urine Ketones Urine Blood Urine Nitrite Urine Bilirubin Urine Urobilinogen Ur Leukocyte Esterase Stool Occult Blood Alcohol, Quantitative Blood Type Antibody Screen 04/09/18 04/09/18 04/09/18 08:55 10:35 12:06 WBC RBC Hgb Hct MCV MCH MCHC RDW Plt Count MPV Absolute Neuts (auto) Neutrophils % Lymphocytes % Monocytes % Eosinophils % Basophils % Nucleated RBC % Retic Count 1.98 H D PT with INR INR PTT (Actin FS) Sodium Potassium Chloride Carbon Dioxide Anion Gap BUN Creatinine Creat Clearance w eGFR POC Glucometer 157 Random Glucose Hemoglobin A1c % Calcium Phosphorus Magnesium Ferritin Total Bilirubin AST ALT Alkaline Phosphatase Creatine Kinase Troponin I Total Protein Albumin Vitamin B12 Serum Folate Urine Color Urine Appearance Urine pH Ur Specific [place] Urine Protein Urine Glucose (UA) Urine Ketones Urine Blood Urine Nitrite Urine Bilirubin Urine Urobilinogen Ur Leukocyte Esterase Stool Occult Blood Negative Alcohol, Quantitative Blood Type Antibody Screen 04/09/18 04/09/18 04/09/18 13:48 13:48 13:48 WBC 6.4 RBC 2.30 L Hgb 7.7 L Hct 22.1 L MCV 96.2 H MCH 33.5 MCHC 34.8 RDW 16.0 H Plt Count 356 MPV 6.9 L Absolute Neuts (auto) Neutrophils % Lymphocytes % Monocytes % Eosinophils % Basophils % Nucleated RBC % Retic Count PT with INR 10.50 INR 0.89 PTT (Actin FS) 29.7 Sodium Potassium Chloride Carbon Dioxide Anion Gap BUN Creatinine Creat Clearance w eGFR POC Glucometer Random Glucose Hemoglobin A1c % Calcium Phosphorus Magnesium Ferritin Total Bilirubin AST ALT Alkaline Phosphatase Creatine Kinase Troponin I Total Protein Albumin Vitamin B12 Serum Folate Urine Color Urine Appearance Urine pH Ur Specific [place] Urine Protein Urine Glucose (UA) Urine Ketones Urine Blood Urine Nitrite Urine Bilirubin Urine Urobilinogen Ur Leukocyte Esterase Stool Occult Blood Alcohol, Quantitative Blood Type O POSITIVE Antibody Screen Negative H 04/09/18 16:49 WBC RBC Hgb Hct MCV MCH MCHC RDW Plt Count MPV Absolute Neuts (auto) Neutrophils % Lymphocytes % Monocytes % Eosinophils % Basophils % Nucleated RBC % Retic Count PT with INR INR PTT (Actin FS) Sodium Potassium Chloride Carbon Dioxide Anion Gap BUN Creatinine Creat Clearance w eGFR POC Glucometer 117 Random Glucose Hemoglobin A1c % Calcium Phosphorus Magnesium Ferritin Total Bilirubin AST ALT Alkaline Phosphatase Creatine Kinase Troponin I Total Protein Albumin Vitamin B12 Serum Folate Urine Color Urine Appearance Urine pH Ur Specific [place] Urine Protein Urine Glucose (UA) Urine Ketones Urine Blood Urine Nitrite Urine Bilirubin Urine Urobilinogen Ur Leukocyte Esterase Stool Occult Blood Alcohol, Quantitative Blood Type Antibody Screen Active Medications Generic Name Dose Route Start Last Admin Trade Name Jesika PRN Reason Stop Dose Admin Folic Acid 1 mg 04/09/18 10:00 04/09/18 10:36 Folic Acid - PO 1 mg DAILY SHREE Administration Gabapentin 100 mg 04/09/18 00:45 04/09/18 10:37 Neurontin - PO 100 mg BID SHREE Administration Dextrose/Sodium Chloride 1,000 mls @ 100 mls/hr 04/09/18 08:59 04/09/18 10:37 D5-1/2ns - IV 100 mls/hr ASDIR SHREE Administration Nicotine 7 mg 04/09/18 10:00 04/09/18 10:38 Nicoderm Patch - TD 7 mg DAILY SHREE Administration Pantoprazole Sodium 40 mg 04/09/18 10:00 04/09/18 10:37 Protonix Iv IVPUSH 40 mg BID SHREE Administration Thiamine HCl 100 mg 04/09/18 10:00 04/09/18 10:36 Vitamin B1 - PO 100 mg BID SHREE Administration ASSESSMENT/PLAN: 62 yo female with PMH HTN, peripheral neuropathy, alcohol abuse admitted following an episode of syncope with LOC. #Syncope 2/2 hypovolemia? -Sons endorse poor PO intake of pt -Poor intake 2/2 chronic alcoholism -Aggressive I.V Fluids -Brain MRI --> Brainstem gliosis, atherosclerotic ischemic rarefaction. -Carotid Ultrasound- No hemodynamically significant stenosis. #ULICES like 2/2 Hypovolemia. -Trend Renal Function - Aggressive I.V fluids -Avoid nephrotoxic agents such as aminoglycosides, NSAIDS #Peripheral Neuropathy/Unsteady gait -Dr Angel on board. -Gabapentin 100 mg PO BID -B12 level WNL -Thiamine 100 mg twice daily # Arrhythmia -Tele, Dr Gill on board---> sinus rhythm with sinus arrhythmia, frequent apcs and brief self limited episodes of PSVT -QTc noted 506 and then 575 on repeat -Per Cardio--> -this would not account for her presenting symptoms of syncope and dizziness -ECHO--> EF WNL. #HTN -Antihypertensives held in light of hypotension #Anemia -Pt stable from prior admission - Macrocytic anemia most likely 2/2 chronic alcohol abuse. Exacerbated by fluids. -G.I consult -Monitor H/H. #Alcohol Abuse -Monitor for signs of withdrawal -CIWA currently 2 for mild tremors -Initiate alcohol withdrawal protocol as needed but will hold off on librium/ ativan for now - Alcohol level negative on admission #DVT Prophylaxis -Lovenox 40 mg SQ Daily #FEN -D51/2 NS@100cc/hr -Monitor Electrolytes -Na Controlled Diet #Dispo Tele Visit type - Emergency Visit Emergency Visit: Yes ED Registration Date: 04/08/18 Care time: The patient presented to the Emergency Department on the above date and was hospitalized for further evaluation of their emergent condition. - New Patient This patient is new to me today: Yes Date on this admission: 04/09/18 - Critical Care Critical Care patient: No - Discharge Referral Referred to [facility] Med P.C.: No
[2018-04-09 20:46] LABS: HEMATOCRIT 22.5 % (32.4-45.2); HEMOGLOBIN 7.7 GM/dL (10.7-15.3); MCH 33.2 pg (25.7-33.7); MCHC 34.3 g/dl (32.0-36.0); MEAN CELL VOLUME 96.9 fl (80-96); MEAN PLT VOLUME 7.3 fl (7.5-11.1); PLATELET COUNT 368 K/MM3 (134-434); RBC 2.33 M/mm3 (3.60-5.2); RDW 15.7 % (11.6-15.6); WHITE BLOOD COUNT 5.9 K/mm3 (4.0-10.0)
[2018-04-09 21:21] LABS: ANION GAP 9 MMOL/L (8-16); BLOOD UREA NITROGEN 4 mg/dL (7-18); CALCIUM 7.5 mg/dL (8.5-10.1); CHLORIDE 111 mmol/L (98-107); CO2 22 mmol/L (21-32); CREATININE 0.7 mg/dL (0.55-1.3); GLUCOSE,RANDOM 90 mg/dL (74-106); POTASSIUM 3.6 mmol/L (3.5-5.1); SODIUM 142 mmol/L (136-145)
[2018-04-10 04:20] LABS: SERUM IRON SATURATION 26 % (15-55); TOTAL IRON BINDING CAPACITY 123 ug/dL (250-450); UIBC 91 ug/dL (118-369)
[2018-04-10 07:01] LABS: HEMOGLOBIN 7.5 GM/dL (10.7-15.3); MCH 31.9 pg (25.7-33.7); MCHC 32.7 g/dl (32.0-36.0); MEAN CELL VOLUME 97.7 fl (80-96); MEAN PLT VOLUME 7.4 fl (7.5-11.1); PLATELET COUNT 317 K/MM3 (134-434); RBC 2.36 M/mm3 (3.60-5.2); WHITE BLOOD COUNT 5.3 K/mm3 (4.0-10.0)
[2018-04-10 07:47] LABS: ANION GAP 8 MMOL/L (8-16); CALCIUM 7.7 mg/dL (8.5-10.1); CHLORIDE 110 mmol/L (98-107); CO2 23 mmol/L (21-32); CREATININE 0.5 mg/dL (0.55-1.3); GLUCOSE,RANDOM 81 mg/dL (74-106); MAGNESIUM 2.4 mg/dL (1.8-2.4); PHOSPHOROUS 2.6 mg/dL (2.5-4.9); POTASSIUM 3.3 mmol/L (3.5-5.1); SODIUM 141 mmol/L (136-145)
[2018-04-10 08:05] LABS: BLOOD UREA NITROGEN 2 mg/dL (7-18)
--- NOTE | 2018-04-10 08:09 | PN ---
Teaching Attending Note Name of Resident: Sonido Alarcon ATTENDING PHYSICIAN STATEMENT I saw and evaluated the patient. I reviewed the resident's note and discussed the case with the resident. I agree with the resident's findings and plan as documented with exceptions below. SUBJECTIVE: Patient seen and examined. feels better, tolerating diet, no dark or bloody stools or new concerns. OBJECTIVE: Vital Signs Period Temp Pulse Resp BP Sys/Finley Pulse Ox Last 24 Hr 97.5 F-98.4 F 68-109 18-23 106-138/64-92 98-99 Intake & Output 04/07/18 04/08/18 04/09/18 04/10/18 23:59 23:59 23:59 23:59 Intake Total 2220 1400 Output Total 500 Balance 1720 1400 Weight 150 lb 110 lb 4 oz General: lying in bed in no acute distress Chest: CTAB, no rales or wheezing Abdomen: soft, NT, nD Extremities: no edema Active Medications Folic Acid (Folic Acid -) 1 mg PO DAILY [facility] Last Admin: 04/09/18 10:36 Dose: 1 mg Gabapentin (Neurontin -) 100 mg PO BID [facility] Last Admin: 04/09/18 21:28 Dose: 100 mg Dextrose/Sodium Chloride (D5-1/2ns -) 1,000 mls @ 100 mls/hr IV ASDIR [facility] Last Admin: 04/09/18 10:37 Dose: 100 mls/hr Nicotine (Nicoderm Patch -) 7 mg TD DAILY [facility] Last Admin: 04/09/18 10:38 Dose: 7 mg Pantoprazole Sodium (Protonix Iv) 40 mg IVPUSH BID [facility] Last Admin: 04/09/18 21:28 Dose: 40 mg Thiamine HCl (Vitamin B1 -) 100 mg PO BID [facility] Last Admin: 04/09/18 21:28 Dose: 100 mg Laboratory Results - last 24 hr 04/09/18 04/09/18 04/09/18 05:30 05:30 08:55 WBC 7.6 RBC 2.63 L Hgb 8.5 L Hct 26.0 L MCV 98.8 H MCH 32.3 MCHC 32.6 RDW 16.2 H Plt Count 385 MPV 6.8 L Retic Count PT with INR INR PTT (Actin FS) Sodium 145 Potassium 4.6 Chloride 111 H Carbon Dioxide 24 Anion Gap 10 BUN 29 H Creatinine 1.8 H Creat Clearance w eGFR 28.60 POC Glucometer Random Glucose 147 H Hemoglobin A1c % < 5.0 Calcium 7.7 L Phosphorus 4.0 Magnesium 1.7 L Iron TIBC Iron Saturation Ferritin 1258.3 H Total Bilirubin 0.3 AST 15 ALT < 6 L Alkaline Phosphatase 136 H Total Protein 6.0 L Albumin 1.7 L Vitamin B12 474 Serum Folate 6 Stool Occult Blood Blood Type Antibody Screen Antibody Identification Antigen Identification 04/09/18 04/09/18 04/09/18 08:55 08:55 08:55 WBC RBC Hgb Hct MCV MCH MCHC RDW Plt Count MPV Retic Count 1.98 H D PT with INR 10.50 INR 0.89 PTT (Actin FS) 29.0 Sodium Potassium Chloride Carbon Dioxide Anion Gap BUN Creatinine Creat Clearance w eGFR POC Glucometer Random Glucose Hemoglobin A1c % Calcium Phosphorus Magnesium Iron 32 TIBC 123 L Iron Saturation 26 Ferritin Total Bilirubin AST ALT Alkaline Phosphatase Total Protein Albumin Vitamin B12 Serum Folate Stool Occult Blood Blood Type Antibody Screen Antibody Identification Antigen Identification 04/09/18 04/09/18 04/09/18 10:35 12:06 13:48 WBC 6.4 RBC 2.30 L Hgb 7.7 L Hct 22.1 L MCV 96.2 H MCH 33.5 MCHC 34.8 RDW 16.0 H Plt Count 356 MPV 6.9 L Retic Count PT with INR INR PTT (Actin FS) Sodium Potassium Chloride Carbon Dioxide Anion Gap BUN Creatinine Creat Clearance w eGFR POC Glucometer 157 Random Glucose Hemoglobin A1c % Calcium Phosphorus Magnesium Iron TIBC Iron Saturation Ferritin Total Bilirubin AST ALT Alkaline Phosphatase Total Protein Albumin Vitamin B12 Serum Folate Stool Occult Blood Negative Blood Type Antibody Screen Antibody Identification Antigen Identification 04/09/18 04/09/18 04/09/18 13:48 13:48 16:49 WBC RBC Hgb Hct MCV MCH MCHC RDW Plt Count MPV Retic Count PT with INR 10.50 INR 0.89 PTT (Actin FS) 29.7 Sodium Potassium Chloride Carbon Dioxide Anion Gap BUN Creatinine Creat Clearance w eGFR POC Glucometer 117 Random Glucose Hemoglobin A1c % Calcium Phosphorus Magnesium Iron TIBC Iron Saturation Ferritin Total Bilirubin AST ALT Alkaline Phosphatase Total Protein Albumin Vitamin B12 Serum Folate Stool Occult Blood Blood Type O POSITIVE Antibody Screen Positive H Antibody Identification Anti-e Antigen Identification E Antigen - NEGATIVE 12/05/18 12/05/18 12/05/18 19:40 19:40 19:40 WBC 5.9 RBC 2.33 L Hgb 7.7 L Hct 22.5 L MCV 96.9 H MCH 33.2 MCHC 34.3 RDW 15.7 H Plt Count 368 MPV 7.3 L Retic Count PT with INR INR PTT (Actin FS) Sodium 142 Potassium 3.6 Chloride 111 H Carbon Dioxide 22 Anion Gap 9 BUN 4 L Creatinine 0.7 Creat Clearance w eGFR > 60 POC Glucometer Random Glucose 90 Hemoglobin A1c % Calcium 7.5 L Phosphorus Magnesium Iron TIBC Iron Saturation Ferritin Total Bilirubin AST ALT Alkaline Phosphatase Total Protein Albumin Vitamin B12 Serum Folate Stool Occult Blood Blood Type O POSITIVE Antibody Screen Antibody Identification Antigen Identification 04/09/18 04/10/18 04/10/18 21:31 05:30 05:41 WBC RBC Hgb Hct MCV MCH MCHC RDW Plt Count MPV Retic Count PT with INR INR PTT (Actin FS) Sodium 141 Potassium 3.3 L Chloride 110 H Carbon Dioxide 23 Anion Gap 8 BUN 2 L* Creatinine 0.5 L Creat Clearance w eGFR > 60 POC Glucometer 113 104 Random Glucose 81 Hemoglobin A1c % Calcium 7.7 L Phosphorus 2.6 Magnesium 2.4 Iron TIBC Iron Saturation Ferritin Total Bilirubin AST ALT Alkaline Phosphatase Total Protein Albumin Vitamin B12 Serum Folate Stool Occult Blood Blood Type Antibody Screen Antibody Identification Antigen Identification MRI brain results reviewed 2D echo results reviewed ASSESSMENT AND PLAN: 62 yof with PMHx of HTN, peripheral neuropathy,ETOH abuse admitted with syncope. -Syncope, suspect orthostatic compounded by ETOH use/poor nutrition/Hypovolumia , low suspicion for GIbleed contributing to the same, less likely cardiac or neurological etiology -Tachycardia, Sinus arrhythmia with SVT vs MAT -ULICES, ?hypovolumia, r/o retention/GI bleed, resolved with hydration, no evidence of retention -Acute on chronic macrocytic anemia, suspect from chronic poor nutrition, with dilutional component, r/o GI Bleed given ETOH use -Peripheral neuropathy -ETOH abuse -HTN Plan: Telemetry reviewed, Cardiology input noted. 2D echo reviewed. Orthostasis resolved. Taper IVF, encourage oral intake. Suspect chronic anemia from malnutrition and anemia of chronic disease compounded by dilutional component from aggressive hydration. Do not suspect ongoing bleed. GI input appreciated Transfuse 1 unit PRBC. Renal function normalized. Iron panel/b12/folate results noted. Continue folate, thiamine, and monitor for withdrawal, detox consult accordingly. Gabapentin. MRI/neurology input noted. Resume Amlodipine based on BP readings. DVTPPX SCDs given anemia. PT al noted Social work input noted. PLan for d/c home with family assist in 24 hours if appropriate response to PRBC and no new events. Plan discussed with patient and son at bedside in detail, all questions answered.
[2018-04-10] MEDS ORDERED: ACETAMINOPHEN 325 MG TABLET (FP) PO ONE ×2 (09:01→20:30)
[2018-04-10] MEDS: THIAMINE HCL 100 MG TABLET (FP) PO SCH ×2 (09:30→21:29)
[2018-04-10] MEDS: NICOTINE 7 MG/24 HOURS TOPICAL PATCH TD SCH (09:30)
[2018-04-10] MEDS: PANTOPRAZOLE SODIUM 40 MG VIAL IVPUSH SCH ×2 (09:30→21:29)
[2018-04-10] MEDS: DEXTROSE 5%-0.45% SALINE 1,000 ML IV SCH (09:31)
[2018-04-10] MEDS: GABAPENTIN 100 MG CAPSULE (FP) PO SCH ×2 (09:31→21:29)
[2018-04-10] MEDS: FOLIC ACID 1 MG TABLET (FP) PO SCH (09:31)
--- NOTE | 2018-04-10 17:48 | PN ---
Physical Exam: SUBJECTIVE: Patient seen and examined at bedside. No acute events overnight. Sons at bedside. OBJECTIVE: Vital Signs Period Temp Pulse Resp BP Sys/Finley Pulse Ox Last 24 Hr 97.5 F-98.4 F 86-92 18-20 115-138/73-92 98-100 GENERAL: NAD AAOX3. HEAD: NC/AT EYES: EOMI Conjunctiva clear ENT: MMM NECK: supple. LUNGS: DEC BS at bases HEART: Irregular ABDOMEN: Soft NDNT EXTREMITIES: No CCE NEUROLOGICAL: Gait Not observed. Strength 5/5 lower extremities. 5/5 upper extremities. SILT. Unchanged from previous exam. SKIN:no rashes or lesions appreciated Laboratory Results - last 24 hr 04/09/18 04/09/18 04/09/18 08:55 13:48 19:40 WBC 5.9 RBC 2.33 L Hgb 7.7 L Hct 22.5 L MCV 96.9 H MCH 33.2 MCHC 34.3 RDW 15.7 H Plt Count 368 MPV 7.3 L Sodium Potassium Chloride Carbon Dioxide Anion Gap BUN Creatinine Creat Clearance w eGFR POC Glucometer Random Glucose Calcium Phosphorus Magnesium Iron 32 TIBC 123 L Iron Saturation 26 Blood Type O POSITIVE Antibody Screen Positive H Antibody Identification Anti-e Antigen Identification E Antigen - NEGATIVE Crossmatch See Detail 04/09/18 04/09/18 04/09/18 19:40 19:40 21:31 WBC RBC Hgb Hct MCV MCH MCHC RDW Plt Count MPV Sodium 142 Potassium 3.6 Chloride 111 H Carbon Dioxide 22 Anion Gap 9 BUN 4 L Creatinine 0.7 Creat Clearance w eGFR > 60 POC Glucometer 113 Random Glucose 90 Calcium 7.5 L Phosphorus Magnesium Iron TIBC Iron Saturation Blood Type O POSITIVE Antibody Screen Antibody Identification Antigen Identification Crossmatch See Detail 04/10/18 04/10/18 04/10/18 05:30 05:30 05:41 WBC 5.3 RBC 2.36 L Hgb 7.5 L Hct 23.0 L MCV 97.7 H MCH 31.9 MCHC 32.7 RDW 16.0 H Plt Count 317 MPV 7.4 L Sodium 141 Potassium 3.3 L Chloride 110 H Carbon Dioxide 23 Anion Gap 8 BUN 2 L* Creatinine 0.5 L Creat Clearance w eGFR > 60 POC Glucometer 104 Random Glucose 81 Calcium 7.7 L Phosphorus 2.6 Magnesium 2.4 Iron TIBC Iron Saturation Blood Type Antibody Screen Antibody Identification Antigen Identification Crossmatch 04/10/18 16:59 WBC RBC Hgb Hct MCV MCH MCHC RDW Plt Count MPV Sodium Potassium Chloride Carbon Dioxide Anion Gap BUN Creatinine Creat Clearance w eGFR POC Glucometer 137 Random Glucose Calcium Phosphorus Magnesium Iron TIBC Iron Saturation Blood Type Antibody Screen Antibody Identification Antigen Identification Crossmatch Active Medications Generic Name Dose Route Start Last Admin Trade Name Jesika PRN Reason Stop Dose Admin Folic Acid 1 mg 04/09/18 10:00 04/10/18 09:31 Folic Acid - PO 1 mg DAILY SHREE Administration Gabapentin 100 mg 04/09/18 00:45 04/10/18 09:31 Neurontin - PO 100 mg BID SHREE Administration Dextrose/Sodium Chloride 1,000 mls @ 100 mls/hr 04/09/18 08:59 04/10/18 09:31 D5-1/2ns - IV 100 mls/hr ASDIR SHREE Administration Nicotine 7 mg 04/09/18 10:00 04/10/18 09:30 Nicoderm Patch - TD 7 mg DAILY SHREE Administration Pantoprazole Sodium 40 mg 04/09/18 10:00 04/10/18 09:30 Protonix Iv IVPUSH 40 mg BID SHREE Administration Thiamine HCl 100 mg 04/09/18 10:00 04/10/18 09:30 Vitamin B1 - PO 100 mg BID SHREE Administration ASSESSMENT/PLAN: 62 yo female with PMH HTN, peripheral neuropathy, alcohol abuse admitted following an episode of syncope with LOC. #Syncope 2/2 hypovolemia? -Sons endorse poor PO intake of pt -Poor intake 2/2 chronic alcoholism -Aggressive I.V Fluids -Brain MRI --> Brainstem gliosis, atherosclerotic ischemic rarefaction. -Carotid Ultrasound- No hemodynamically significant stenosis. #ULICES like 2/2 Hypovolemia. -Trend Renal Function---> Creatinine 04/09/18 was 1.5. Today 0.5. Most likely 2.2 volume contraction 2/2 poor PO intake/Malnutrition - Aggressive I.V fluids -Avoid nephrotoxic agents such as aminoglycosides, NSAIDS #Peripheral Neuropathy/Unsteady gait -Dr Angel on board. -Gabapentin 100 mg PO BID -B12 level WNL -Thiamine 100 mg twice daily # Arrhythmia -Tele, Dr Gill on board---> sinus rhythm with sinus arrhythmia, frequent apcs and brief self limited episodes of PSVT -QTc noted 506 and then 575 on repeat -Per Cardio--> -this would not account for her presenting symptoms of syncope and dizziness -ECHO--> EF WNL. #HTN -Antihypertensive resumed #Anemia -Received 1 unit PRBC earlier today. Will recheck CBC tomorrow AM. HGB 7.5 in am. - Macrocytic anemia most likely 2/2 chronic alcohol abuse. Exacerbated by fluids. -G.I consult Dr Monsalve on board Recs: Trend HGB daily, Diagnostic upper endoscopy and colonoscopy, pt has never been screened for colon cancer. Protonix 40 daily, alcohol counseling, avoidance of NSAIDS. -Monitor H/H. #Alcohol Abuse -Monitor for signs of withdrawal #DVT Prophylaxis -Lovenox 40 mg SQ Daily #FEN -D51/2 NS@100cc/hr -Monitor Electrolytes -Na Controlled Diet #Dispo For D/C tomorrow with VNS Visit type - Emergency Visit Emergency Visit: Yes ED Registration Date: 04/08/18 Care time: The patient presented to the Emergency Department on the above date and was hospitalized for further evaluation of their emergent condition. - New Patient This patient is new to me today: No - Critical Care Critical Care patient: No - Discharge Referral Referred to [facility] Med P.C.: No
[2018-04-11 07:29] LABS: HEMATOCRIT 27.7 % (32.4-45.2); HEMOGLOBIN 9.6 GM/dL (10.7-15.3); MCH 32.9 pg (25.7-33.7); MCHC 34.7 g/dl (32.0-36.0); MEAN CELL VOLUME 94.7 fl (80-96); MEAN PLT VOLUME 7.6 fl (7.5-11.1); PLATELET COUNT 318 K/MM3 (134-434); RBC 2.93 M/mm3 (3.60-5.2); WHITE BLOOD COUNT 6.2 K/mm3 (4.0-10.0)
[2018-04-11 08:08] LABS: ANION GAP 7 MMOL/L (8-16); BLOOD UREA NITROGEN 5 mg/dL (7-18); CHLORIDE 112 mmol/L (98-107); CO2 24 mmol/L (21-32); CREATININE 0.6 mg/dL (0.55-1.3); GLUCOSE,RANDOM 74 mg/dL (74-106); PHOSPHOROUS 2.6 mg/dL (2.5-4.9); POTASSIUM 3.7 mmol/L (3.5-5.1); SODIUM 144 mmol/L (136-145)
[2018-04-11 08:14] LABS: CALCIUM 6.7 mg/dL (8.5-10.1)
[2018-04-11 09:06] LABS: ALBUMIN 2.3 g/dl (3.4-5.0)
[2018-04-11] MEDS: PANTOPRAZOLE SODIUM 40 MG VIAL IVPUSH SCH (10:00)
[2018-04-11] MEDS: THIAMINE HCL 100 MG TABLET (FP) PO SCH (10:00)
[2018-04-11] MEDS: GABAPENTIN 100 MG CAPSULE (FP) PO SCH (10:00)
[2018-04-11] MEDS ORDERED: amLODIPine BESYLATE 5 MG TABLET (FP) PO SCH (10:00)
[2018-04-11] MEDS: NICOTINE 7 MG/24 HOURS TOPICAL PATCH TD SCH (10:00)
[2018-04-11] MEDS: FOLIC ACID 1 MG TABLET (FP) PO SCH (10:00)
[2018-04-11] MEDS ORDERED: CALCIUM 500MG/VIT-D 200 UNITS COMBO TABLET (FP) PO SCH (10:15)
[2018-04-11 14:22] VITALS: BP 134/80; PULSE 98; TEMP 97.6
--- NOTE | 2018-04-11 15:58 | DS ---
Physical Exam: SUBJECTIVE: Patient seen and examined at bedside. No complaints. Eager to return home. OBJECTIVE: Vital Signs Period Temp Pulse Resp BP Sys/Finley Pulse Ox Last 24 Hr 97.6 F-98.2 F 87-98 18-20 134-159/74-95 100-100 PHYSICAL EXAM GENERAL: Pleasant Awake Alert HEAD: NC/AT EYES: EOMI Conjunctiva clear ENT: MMM NECK: supple. LUNGS: DEC BS at bases HEART: Irregular ABDOMEN: Soft NDNT EXTREMITIES: No CCE NEUROLOGICAL: Strength 5/5 upper/lower extremities. Gait ataxic per PT. LABS Laboratory Results - last 24 hr 04/09/18 04/10/18 04/10/18 19:40 05:30 16:59 WBC RBC Hgb Hct MCV MCH MCHC RDW Plt Count MPV Sodium Potassium Chloride Carbon Dioxide Anion Gap BUN Creatinine Creat Clearance w eGFR POC Glucometer 137 Random Glucose Calcium Phosphorus Magnesium Iron 34 Albumin Crossmatch See Detail 04/10/18 04/11/18 04/11/18 22:55 05:00 05:30 WBC 6.2 RBC 2.93 L Hgb 9.6 L Hct 27.7 L D MCV 94.7 MCH 32.9 MCHC 34.7 RDW 18.0 H Plt Count 318 MPV 7.6 Sodium Potassium Chloride Carbon Dioxide Anion Gap BUN Creatinine Creat Clearance w eGFR POC Glucometer 123 Random Glucose Calcium Phosphorus Magnesium Iron Albumin Cancelled Crossmatch 04/11/18 04/11/18 05:30 05:43 WBC RBC Hgb Hct MCV MCH MCHC RDW Plt Count MPV Sodium 144 Potassium 3.7 Chloride 112 H Carbon Dioxide 24 Anion Gap 7 L BUN 5 L Creatinine 0.6 Creat Clearance w eGFR > 60 POC Glucometer 99 Random Glucose 74 Calcium 6.7 L* Phosphorus 2.6 Magnesium 2.0 Iron Albumin 2.3 L Crossmatch HOSPITAL COURSE: Date of Admission:04/08/18 62 y/o lady PMH HTN, peripheral neuropathy, and alcohol abuse was admitted to hospital for episode of syncope and loss of consciousness. Pt subsequently underwent a CT of her head w/o Contrast which did not reveal any acute hemorrhage or pathology. Pt was seen by cardiology who reviewed pt's telemetry and noted sinus rhythm with sinus arrhythmia, frequent apcs and brief self limited episodes of PSVT. Echocardiogram was performed which did not reveal any acute pathology, please see report for details. MRI of the brain was also performed which revealed brainstem gliosis and atherosclerotic ischemic rarefacton at the central pontine region. Please see report for further details. Furthermore, Carotid Ultrasound was performed which did not reveal any hemodynamically significant stenosis. Pt was noted to be orthostatic during admission which resolved with IVF. ULICES also was noted which also resolved with IVF. Pt was treated with Thiamine and Folic acid in light of her alcohol abuse. In addition, pt's HGB was noted to be 7.5 during admission and was given 1 URBC. Date of Discharge: 04/11/18 Minutes to complete discharge: 35 Discharge Summary Reason For Visit: HYPERTENSION SYNCOPE FALL Current Active Problems Fall (Acute) Hypertension (Acute) Syncope (Acute) Condition: Improved - Instructions Diet, Activity, Other Instructions: You were treated in the hospital for syncope (loss of consciousness). You were also found to have a low blood count (anemia). You were found dehydrated. You were evaluated by Cardiology, Neurology, and Gastroenterology. Please follow up within 1 week with these physicians. Referrals have been provided to you in your discharge papers. Please also see your primary care physician in 1 week. If you do not have a primary care physician, you may follow up in our clinic located at [address] [place] [address]. A referral has been attached to your discharge papers. It is very important for you to eat a healthy and balanced diet. Alcohol is not a good substitute for nutrition. Information regarding maintaining a healthy and balanced diet has been provided for you in your discharge paperwork. Alcohol abuse is known to have many negative and adverse affects on one's health. If you are interested in seeking treatment for your addiction, you may inform your primary care physician and they can pursue this. Ensure to maintain adequate hydration, avoid sudden postural changes. Please discuss with your doctor for outpatient physical therapy referral. No driving, operating heavy machinery. You are advised supervision and assistance around the house. You will be sent home on Protonix 40 Mg Daily. Please continue to take your home medications as prescribed If you begin to experience chest pain, shortness of breath, nausea, lightheadedness, or any other abnormality, please call 911 and return to the emergency room immediately. Referrals: Gallito Krishnamurthy MD [Staff Physician] - 1 Week Jaiden Baer [Non Staff, Medical] - 1 Week Jackie Monsalve DO [Staff Physician] - Jermaine Gill MD [Staff Physician] - 1 Week Jared Angel MD [Staff Physician] - 1 Week Disposition: HOME - Home Medications Comprehensive Discharge Medication List: Ambulatory Orders Amlodipine Besylate [Norvasc -] 5 mg PO DAILY #30 tablet 04/11/18 Calcium 500Mg/Vit-D 200 Units [Os-Abhijit 500+D -] 1 tab PO BID #60 tab 04/11/18 Gabapentin [Neurontin -] 100 mg PO BID #60 capsule 04/11/18 Nicotine Patch [Nicoderm Patch -] 1 patch TD DAILY #30 patch 04/11/18 Pantoprazole Sodium [Protonix] 40 mg PO DAILY #30 tablet. 04/11/18 This patient is new to me today: No Emergency Visit: Yes ED Registration Date: 04/08/18 Care time: The patient presented to the Emergency Department on the above date and was hospitalized for further evaluation of their emergent condition. Critical Care patient: No - Discharge Referral Referred to [facility] Med P.C.: No
--- NOTE | 2018-04-11 15:59 | PN ---
Teaching Attending Note Name of Resident: Sonido Alarcon ATTENDING PHYSICIAN STATEMENT I saw and evaluated the patient. I reviewed the resident's note and discussed the case with the resident. I agree with the resident's findings and plan as documented with exceptions below. SUBJECTIVE: Patient seen and examined. ox3, eager to go home, no complaints. OBJECTIVE: Vital Signs Period Temp Pulse Resp BP Sys/Finley Pulse Ox Last 24 Hr 97.6 F-98.2 F 87-98 18-20 134-159/74-95 100-100 Intake & Output 04/08/18 04/09/18 04/10/18 04/11/18 23:59 23:59 23:59 23:59 Intake Total 2220 3770 1010 Output Total 500 Balance 1720 3770 1010 Weight 150 lb 110 lb 4 oz 110 lb General: sitting in bed in no acute distress Chest: CTAB, no rales or wheezing Abdomen:Soft, NT Extremities: no edema neuro: AAOX3, able to recall why in the hospital, no tremors, power 5/5 Home Medications Medication Instructions Recorded Amlodipine Besylate [Norvasc -] 5 mg PO DAILY #30 tablet 04/11/18 Calcium 500Mg/Vit-D 200 Units 1 tab PO BID #60 tab 04/11/18 [Os-Abhijit 500+D -] Gabapentin [Neurontin -] 100 mg PO BID #60 capsule 04/11/18 Nicotine Patch [Nicoderm Patch -] 1 patch TD DAILY #30 patch 04/11/18 Pantoprazole Sodium [Protonix] 40 mg PO DAILY #30 tablet. 04/11/18 Laboratory Results - last 24 hr 04/09/18 04/10/18 04/10/18 19:40 05:30 16:59 WBC RBC Hgb Hct MCV MCH MCHC RDW Plt Count MPV Sodium Potassium Chloride Carbon Dioxide Anion Gap BUN Creatinine Creat Clearance w eGFR POC Glucometer 137 Random Glucose Calcium Phosphorus Magnesium Iron 34 Albumin Crossmatch See Detail 04/10/18 04/11/18 04/11/18 22:55 05:00 05:30 WBC 6.2 RBC 2.93 L Hgb 9.6 L Hct 27.7 L D MCV 94.7 MCH 32.9 MCHC 34.7 RDW 18.0 H Plt Count 318 MPV 7.6 Sodium Potassium Chloride Carbon Dioxide Anion Gap BUN Creatinine Creat Clearance w eGFR POC Glucometer 123 Random Glucose Calcium Phosphorus Magnesium Iron Albumin Cancelled Crossmatch 04/11/18 04/11/18 05:30 05:43 WBC RBC Hgb Hct MCV MCH MCHC RDW Plt Count MPV Sodium 144 Potassium 3.7 Chloride 112 H Carbon Dioxide 24 Anion Gap 7 L BUN 5 L Creatinine 0.6 Creat Clearance w eGFR > 60 POC Glucometer 99 Random Glucose 74 Calcium 6.7 L* Phosphorus 2.6 Magnesium 2.0 Iron Albumin 2.3 L Crossmatch ASSESSMENT AND PLAN: 62 yof with PMHx of HTN, peripheral neuropathy,ETOH abuse admitted with syncope. -Syncope, suspect orthostatic compounded by ETOH use/poor nutrition/Hypovolumia , low suspicion for GIbleed contributing to the same, less likely cardiac or neurological etiology -Tachycardia, Sinus arrhythmia with SVT vs MAT -ULICES, ?hypovolumia, r/o retention/GI bleed, resolved with hydration, no evidence of retention -Acute on chronic macrocytic anemia, suspect from chronic poor nutrition, with dilutional component, r/o GI Bleed given ETOH use -Peripheral neuropathy -ETOH abuse -HTN Plan: Telemetry reviewed, Cardiology input noted. 2D echo reviewed. Orthostasis resolved. Taper IVF, encourage oral intake. Suspect chronic anemia from malnutrition and anemia of chronic disease compounded by dilutional component from aggressive hydration. Do not suspect ongoing bleed. GI input appreciated Transfuse 1 unit PRBC. Renal function normalized. Iron panel/b12/folate results noted. Continue folate, thiamine, and monitor for withdrawal, detox consult accordingly. Gabapentin. MRI/neurology input noted. Resume Amlodipine based on BP readings. DVTPPX SCDs given anemia. PT eval noted Social work input noted. PLan for d/c home with family assist in 24 hours if appropriate response to PRBC and no new events. Plan discussed with patient and son at bedside in detail, all questions answered. 62 yof with PMHx of HTN, peripheral neuropathy,ETOH abuse admitted with syncope. -Syncope, suspect orthostatic compounded by ETOH use/poor nutrition/Hypovolumia , low suspicion for GIbleed contributing to the same, less likely cardiac or neurological etiology -Tachycardia, Sinus arrhythmia with SVT vs MAT -ULICES, ?hypovolumia, r/o retention/GI bleed, resolved with hydration, no evidence of retention -Acute on chronic macrocytic anemia, suspect from chronic poor nutrition, with dilutional component, r/o GI Bleed given ETOH use -Peripheral neuropathy -ETOH abuse -HTN Plan: Telemetry reviewed, Cardiology input noted. 2D echo reviewed. Orthostasis resolved. Taper IVF, encourage oral intake. Suspect chronic anemia from malnutrition and anemia of chronic disease compounded by dilutional component from aggressive hydration. Do not suspect ongoing bleed. GI input appreciated Transfuse 1 unit PRBC. Renal function normalized. Iron panel/b12/folate results noted. Continue folate, thiamine, and monitor for withdrawal, detox consult accordingly. Gabapentin. MRI/neurology input noted. Resume Amlodipine based on BP readings. DVTPPX SCDs given anemia. PT eval noted Social work input noted. PLan for d/c home with family assist in 24 hours if appropriate response to PRBC and no new events. Plan discussed with patient and son at bedside in detail, all questions answered. 62 yof with PMHx of HTN, peripheral neuropathy,ETOH abuse admitted with syncope. -Syncope, suspect orthostatic compounded by ETOH use/poor nutrition/Hypovolumia , low suspicion for GIbleed contributing to the same, less likely cardiac or neurological etiology -Tachycardia, Sinus arrhythmia with SVT vs MAT -ULICES, ?hypovolumia, r/o retention/GI bleed, resolved with hydration, no evidence of retention -Acute on chronic macrocytic anemia, suspect from chronic poor nutrition, with dilutional component, r/o GI Bleed given ETOH use -Peripheral neuropathy -ETOH abuse -HTN Plan: doing well, BP improved, amlodipine resumed. Appropriate response to PRBC. PT eval noted. Family meeting with both sons today. Discussed in detail about current hospital stay, likely from poor nutritional intake, dehydration and ongoing alcohol use. Explained in detail about need for adequate hydration, nutrition and alcohol cessation. Also needs ongoing PT and supervision Addressed the need for outpatient neurology follow up for cognitive decline Also GI, cardiology follow up and appropriate care Sons motivated and intending to resume her insurance and to address home supervision and outpatient follow up. They relayed full understanding of the current findings and need for ongoing care and follow up and open to resources from social work to address it further. d/c home with family supervision and outpatient follow up. Family meeting was held, with both sons, myself, Dr. Alarcon and social Berna Rico.
== END 2018-04-11 19:20 | disposition home or self-care (01) | DRG 201 ==
LOC: JER 18:52 → JERBED 21:50 → OBSVTOIN 23:42 → J4W 04-09 01:47
PROVIDERS: ADMIT Internal Medicine; ATTEND Hospitalist
PROC: 30233N1 Transfusion of Nonautologous Red Blood Cells into Peripheral Vein, Percutaneous Approach (ICD-10-PCS; principal; 2018-04-10)
DX: I47.1 Supraventricular tachycardia (principal); N17.9 Acute kidney failure, unspecified; E46 Unspecified protein-calorie malnutrition; G62.9 Polyneuropathy, unspecified; E88.09 Other disorders of plasma-protein metabolism, not elsewhere classified; J43.0 Unilateral pulmonary emphysema [MacLeod's syndrome]; D63.8 Anemia in other chronic diseases classified elsewhere; I95.1 Orthostatic hypotension; D64.9 Anemia, unspecified; I10 Essential (primary) hypertension; E86.1 Hypovolemia; I45.81 Long QT syndrome; F17.210 Nicotine dependence, cigarettes, uncomplicated; F10.10 Alcohol abuse, uncomplicated; Z68.20 Body mass index [BMI] 20.0-20.9, adult; D75.89 Other specified diseases of blood and blood-forming organs; R26.81 Unsteadiness on feet; M19.90 Unspecified osteoarthritis, unspecified site
CPT/HCPCS: 36415; 36430; 70450-TC; 70551-TC; 71045-TC-FY; 80048; 80053; 80307; 81003; 82040; 82272; 82550; 82607; 82728; 82746; 82962; 83036; 83540; 83550; 83735; 84100; 84484; 85025; 85027; 85044; 85610; 85730; 86850; 86870; 86900; 86901; 86902; 86922; 93005; 93010; 93306-TC; 93880-TC; 97116-GP; 97162-GP; 99284-25; G0378; J7030; P9058